=== PATIENT | male | born 1955 | race Caucasian/White ===

== ENCOUNTER 2021-11-27 20:43 | Emergency (ER) | payer OTHER, SELFPAY ==
--- NOTE | ~2021-11-27 | CT_ITS ---
EXAMINATION: CT abdomen pelvis w con DATE: 11/27/2021 23:00 INDICATION: Epigastric pain, nausea and vomiting TECHNIQUE: Computed tomography (CT) of the abdomen and pelvis was performed with 100 mL Omnipaque-300 intravenous contrast. Automated exposure control and iterative reconstruction technique were employe d. The dose-length product was 341.99 mGy-cm. COMPARISON: 05/13/2018 FINDINGS: Again seen is a large sliding-type hiatal hernia with herniation of both the proximal and distal stom ach. There is gas and fluid distention of the intervening gastric body which now extends below the di aphragm. There is compressive atelectasis in the immediately adjacent medial aspect of the bilateral lower lobes, left greater than right. Heart size is normal. No pericardial or pleural effusion. Liver , pancreas, right adrenal gland and right kidney are normal. Postoperative change of prior left nephr ectomy and adrenalectomy. Bladder is normal. Prostatomegaly measuring 4.5 x 3.3 cm. Bowels including the appendix are normal. Bilateral fat-containing inguinal hernias. No free intraperitoneal gas or fl uid. No pathologically enlarged abdominal or pelvic lymphadenopathy. There are bridging osteophytes a t multiple levels in the spine, consistent with diffuse idiopathic skeletal hyperostosis (DISH). No i nterval change in a 1.5 cm lucent lesion at the T10 vertebral body which favors a benign etiology mos t likely hemangioma. IMPRESSION: 1. Large sliding-type hiatal hernia which contains to contain both the proximal distal stomach but wi th large amount of gas and fluid distending the intervening central gastric body which now protrudes back below the diaphragm. 2. Interval left nephrectomy and adrenalectomy presumptively for a prior renal cell carcinoma. Correl ate with surgical history. No lesion suspicious for metastatic disease. 3. Prostatomegaly. 4. Bilateral fat-containing inguinal hernias. Reviewed, dictated and finalized at location B. IMPRESSION: 1. Large sliding-type hiatal hernia which contains to contain both the proximal distal stomach but with large amount of gas and fluid distending the interveni ng central gastric body which now protrudes back below the diaphragm. 2. Interval left nephrectomy and adrenalectomy presumptively for a prior renal cell carcinoma. Correlate with surgical history. No lesion suspicious for metas tatic disease. 3. Prostatomegaly. 4. Bilateral fat-containing inguinal hernias.
[2021-11-27 20:47] VITALS: BP 153/85; PULSE 65; RESP 14; TEMP 36.9; O2SAT 93
[2021-11-27 21:00] LABS: Basophils Percent Auto 0.4 % (0.2-1.2); Eosinophils Absolute Auto 0.3 K/mm3 (0-0.3); Eosinophils Percent Auto 2.9 % (0-4.4); Hemoglobin 17.5 g/dL (14.0-18.0); Immature Granulocyte Absolute 0.06 K/mm3 (0.00-0.031); Immature Granulocyte Percent A 0.7 % (0-0.5); Lymphocytes Absolute Auto 1.92 K/mm3 (0.9-3.2); Lymphocytes Percent Auto 21.5 % (18.3-44.2); Mean Corpuscular HGB Conc 33.7 g/dl (32-36); Mean Corpuscular Hemoglobin 32.9 pg (26-34); Mean Corpuscular Volume 97.7 fl (80-100); Mean Platelet Volume 9.7 fl (7.4-10.4); Monocytes Percent Auto 11.6 % (2.6-8.5); Neutrophils Absolute Auto 5.6 K/mm3 (1.3-6.7); Neutrophils Percent Auto 62.9 % (45.5-73.1); Platelet Count Result 181 k/mm3 (150-375); Red Blood Count 5.32 M/mm3 (4.6-6.20); Red Cell Distribution Width 14.5 % (11.5-14.5); White Blood Count 8.9 K/mm3 (4.5-10.0)
[2021-11-27 21:12] LABS: Alanine Aminotransferase 38 U/L (6-50); Alkaline Phosphatase 89 U/L (38-126); Anion Gap 8 mmol/L (8-16); Aspartate Amino Transferase 33 U/L (17-59); Bilirubin,Total 0.8 mg/dL (0.2-1.3); Blood Urea Nitrogen 18 mg/dL (9-20); Calcium 9.5 mg/dL (8.4-10.2); Carbon Dioxide 29 mmol/L (22-30); Chloride 102 mmol/L (98-107); Estimated Glomerular Filt Rate 55; Glucose 118 mg/dL (65-110); Lipase 579 U/L (23-300); Potassium 4.1 mmol/L (3.4-5.0); Sodium 139 mmol/L (137-145)
--- NOTE | 2021-11-27 21:48 | ECG_ITS ---
Measurements Intervals [place] Rate: 58 P: 17 MO: 153 QRS: -3 QRSD: 92 T: -7 QT: 432 QTc: 426 Interpretive Statements SINUS BRADYCARDIA BORDERLINE T WAVE ABNORMALITY- INFERIOR LEADS BASELINE ARTIFACT- AVF, V2, V4 BORDERLINE ECG Electronically Signed On 11-28-2021 6:36:47 CDT by Andreas Ray D.O.
[2021-11-27 21:57] VITALS: BP 164/95; PULSE 60; RESP 16; O2SAT 98
[2021-11-27] MEDS: MORPHINE SULFATE (*CRX) 4 MG/ML INJ IV PUSH (22:17)
[2021-11-27] MEDS: ONDANSETRON INJ 4 MG/2 ML VIAL IV PUSH (22:18)
[2021-11-27 22:30] LABS: Troponin I < 0.012 ng/mL (0.000-0.034)
[2021-11-28 00:40] VITALS: BP 166/88; PULSE 60; RESP 18; O2SAT 98
[2021-11-28 00:46] LABS: Appearance Urine Clear (Clear); Bilirubin Urine Negative (Negative); Blood Urine Negative (Negative); Color Urine Yellow (Yellow); Glucose Urine UA Negative (Negative); Ketones Urine Trace mg/dL (Negative); Leukocyte Esterase Ur Negative LEU/UL (Negative); Nitrate Urine Negative (Negative); Protein Urine Negative (Negative); Specific Grav Ur 1.015 (1.001-1.035); Urobilinogen Urine 0.2 mg/dL (<2.0); pH Urine 7.5 (5.0-9.0)
[2021-11-28 00:49] LABS: Mucus Urine Rare /lpf; RBC Urine 0-2 /hpf (0-2); WBC Urine 0-3 /hpf
[2021-11-28 01:04] LABS: Add Urine Microscopic? YES
--- NOTE | 2021-11-28 01:05 | ED.GENADULT ---
HPI - General Adult General Chief complaint: Abdominal Pain Stated complaint: abd pain Time Seen by Provider: 11/27/21 21:40 History of Present Illness HPI narrative: Patient is a 66-year-old male who presents ER with epigastric pain. Sudden onset after eating [employer]. Feels like bad heartburn. He is belching and vomiting. No fevers or chills or sweats. No exertional chest discomfort. No history of heart disease. Has found no alleviating factors. Related Data Allergies Allergy/AdvReac Type Severity Reaction Status Date / Time No Known Allergies Allergy Unverified 11/25/18 15:36 Review of Systems Review of Systems: All systems reviewed & are unremarkable except as noted in HPI and below Constitutional: Constitutional: Denies chills, Denies fatigue and Denies fever(s) ENT: Denies nasal congestion and Denies sore throat Cardiovascular: Cardiovascular: Denies chest pain and Denies radiating jaw, neck or arm pain Respiratory: Respiratory: Denies cough and Denies dyspnea Gastrointestinal: Gastrointestinal: Reports abdominal pain, Reports bloating, Reports nausea and Reports vomiting Musculoskeletal: Musculoskeletal: Denies back pain and Denies myalgias PMFSH Past Medical History Medical History (Updated 11/29/21 @ 01:49 by Chacho Ramirez MD) Cancer of kidney Essential (primary) hypertension GERD without esophagitis Hypogonadism in male IBS (irritable bowel syndrome) Surgical History Surgical History (Updated 11/29/21 @ 01:49 by Chacho Ramirez MD) H/O left nephrectomy Family History Family History (Updated 12/15/16 @ 10:20 by DOCTOR UNKNOWN) Mother Patient's mother is , Onset Age: 58 Family history of lung cancer, Onset Age: 59 Father Family history of primary malignant neoplasm of liver, Onset Age: 56 Social History Social History Smoking status: Former smoker Smoking end date: 05/18/75 Alcohol intake: current Exam Narrative: GENERAL: Uncomfortable-appearing, well-nourished, and in no acute distress. HEAD: Normocephalic, atraumatic. ENT: Mucous membranes moist. CHEST: Clear to auscultation. No respiratory distress. HEART: Regular rate and rhythm. Normal peripheral pulses. ABDOMEN: Soft, mild epigastric tenderness, nondistended. EXTREMITIES: Normal range of motion. No edema. SKIN: Warm, dry, no rash. NEURO: Alert and oriented x3. PSYCH: Normal mood and affect. Course Course Emergency Course: Patient feeling improved. Has history of hiatal hernia so this is not new. Will restart PPI as he has been taking Pepcid. Follow-up with PCP. Vital Signs Vital signs: Vital Signs Temperature 98.5 F 11/27/21 20:47 Pulse Rate 65 11/27/21 20:47 Respiratory Rate 14 11/27/21 20:47 Blood Pressure 153/85 H 11/27/21 20:47 Pulse Oximetry 93 11/27/21 20:47 Oxygen Delivery Room Air 11/27/21 20:47 Temperature 98.5 F 11/27/21 20:47 Pulse Rate 66 11/28/21 02:35 Respiratory Rate 18 11/28/21 02:35 Blood Pressure 152/90 H 11/28/21 02:35 Pulse Oximetry 98 11/28/21 02:35 Oxygen Delivery Room Air 11/27/21 21:57 Medical Decision Making Vital Signs Vital Signs: Vital Signs Temperature 98.5 F 11/27/21 20:47 Pulse Rate 65 11/27/21 20:47 Respiratory Rate 14 11/27/21 20:47 Blood Pressure 153/85 H 11/27/21 20:47 Pulse Oximetry 93 11/27/21 20:47 Oxygen Delivery Room Air 11/27/21 20:47 Temperature 98.5 F 11/27/21 20:47 Pulse Rate 66 11/28/21 02:35 Respiratory Rate 18 11/28/21 02:35 Blood Pressure 152/90 H 11/28/21 02:35 Pulse Oximetry 98 11/28/21 02:35 Oxygen Delivery Room Air 11/27/21 21:57 Lab Data Result diagrams: 11/27/21 20:54 11/27/21 20:54 Labs: Lab Results 11/27/21 11/27/21 11/27/21 Range/Units 20:54 20:54 20:54 WBC 8.9 (4.5-10.0) K/mm3 RBC 5.32 (4.6-6.20) M/mm3 Hgb 17.5 (14.0-18.0) g/dL Hct 52.0 (42.0-52.
[2021-11-28 01:41] VITALS: BP 174/91; PULSE 65; RESP 18; O2SAT 100
[2021-11-28] MEDS: PANTOPRAZOLE SODIUM IV 40 MG VIAL IV PUSH (01:42)
[2021-11-28 02:35] VITALS: BP 152/90; PULSE 66; RESP 18; O2SAT 98
== END 2021-11-28 02:37 | disposition home or self-care (01) ==
PROVIDERS: Emergency Provider Emergency Medicine; PCP Student in an Organized Health Care Education/Training Program
DX: K29.70 Gastritis, unspecified, without bleeding (principal); K44.9 Diaphragmatic hernia without obstruction or gangrene; I10 Essential (primary) hypertension; Z87.891 Personal history of nicotine dependence
CPT/HCPCS: 36415; 74177; 80053; 81001; 83690; 84484; 85025; 93005; 96374; 96375; 99284; C9113; J2270; J2405; Q9967

== ENCOUNTER 2022-03-04 11:11 | Day surgery (SDC) | payer OTHER, SELFPAY ==
[2022-02-17 14:05] VITALS: BMI 25.9
[2022-03-04 11:45] VITALS: BP 169/91; PULSE 52; RESP 20; TEMP 36.7; O2SAT 99
[2022-03-04] MEDS: LACTATED RINGERS 1,000 ML 150 ML IV CONT (12:30)
--- NOTE | 2022-03-04 12:49 | P.PNAN_ITS ---
Anes - Initial Pre Proc Eval Procedure: Operation Date: 03/04/22 13:00 Proposed Procedures p Esophagogastroduodenoscopy - Raghavendra Harkins MD Date/Time: 03/04/22 12:49 Surgeon: Raghavendra Harkins MD Pre Op Diagnosis: Gerd Patient Data Age: 66 Gender: M Height: 1.7 m Weight: 73.5 kg Allergies Allergy/AdvReac Type Severity Reaction Status Date / Time No Known Allergies Allergy Verified 03/04/22 11:55 Home Medications Medication Instructions Recorded Confirmed Type pantoprazole 40 mg tablet,delayed 40 mg PO DAILY #90 tabs 12/25/21 03/04/22 Rx release atorvastatin 20 mg tablet 20 mg PO DAILY 02/17/22 03/04/22 History folic acid 1 mg tablet 1 mg PO DAILY 02/17/22 03/04/22 History lisinopril 40 mg tablet 40 mg PO DAILY 02/17/22 03/04/22 History methotrexate sodium 2.5 mg tablet 20 mg PO WEEKLY 02/17/22 03/04/22 History nebivolol 10 mg tablet (Bystolic) 10 mg PO DAILY 02/17/22 03/04/22 History testosterone cypionate 200 mg/mL 200 mg IM MONTHLY 02/17/22 03/04/22 History intramuscular oil Patient hx anesthesia problems: none Family hx anesthesia problems: none Results Review: All pre-operative results and documents have been reviewed as part of the pre- operative evaluation. [facility] Past Medical History Medical History Cancer of kidney Essential (primary) hypertension GERD without esophagitis Hypogonadism in male IBS (irritable bowel syndrome) Surgical History Surgical History H/O left nephrectomy Family History Family History Mother Patient's mother is , Onset Age: 58 Family history of lung cancer, Onset Age: 59 Father Family history of primary malignant neoplasm of liver, Onset Age: 56 Social History Social History Smoking status: Never smoker Smoking end date: 05/18/75 Alcohol intake: current Alcohol use details: social Substance use: never Substance use type: does not use Living arrangements: with family Spiritual care concerns: No Anes - Eval Final PreProcedure Day of Procedure 03/04/22 12:49 Patient weight: normal Heart: regular rate and rhythm Lungs: clear to auscultation Airway: Mallampati scale class II Neurological: alert and oriented Last oral intake: >/= 8 hours Emergent: no Anesthetic plan: proceed Anesthesia type and monitoring: general GIVS and standard monitoring Results Review: All pre-operative results and documents have been reviewed as part of the pre- operative evaluation. Informed Consent: The patient's anesthetic plan and its attendant risks and benefits were discussed with the patient/family/POA. Questions were solicited and answers provided to the satisfaction of the patient/family/POA.
--- NOTE | 2022-03-04 14:04 | PM.HPGS ---
History of Present Illness History of Present Illness Consent: Risks, benefits, and alternatives have been discussed and questions answered. Patient agrees to proceed with procedure. Chief complaint: Gerd Narrative: Daniel Ibrahim is a 66 year old male Presents for EGD. Patient has a longstanding history of GE reflux disease. Recently started on pantoprazole 40mg p.o. daily. He went to the emergency room. Because of severe substernal chest pain. Because of the pain he was advised to take pantoprazole b.i.d. but his prescription has not yet been accomplished long-term. Patient denies any dysphagia. He has had no bleeding. He denies any weight loss. Previous endoscopy 8 or 9 years ago was unremarkable. Patient presents today for EGD because of persistent heartburn poorly responsive to current medication trials. Review of Systems Review of Systems: Review of systems noncontributory. [facility] Past Medical History Medical History Cancer of kidney Essential (primary) hypertension GERD without esophagitis Hypogonadism in male IBS (irritable bowel syndrome) Surgical History Surgical History H/O left nephrectomy Family History Family History Mother Patient's mother is , Onset Age: 58 Family history of lung cancer, Onset Age: 59 Father Family history of primary malignant neoplasm of liver, Onset Age: 56 Social History Social History Smoking status: Never smoker Smoking end date: 05/18/75 Alcohol intake: current Alcohol use details: social Substance use: never Substance use type: does not use Living arrangements: with family Spiritual care concerns: No Meds Home Medications and Allergies Home Medications Medication Instructions Recorded Confirmed Type pantoprazole 40 mg tablet,delayed 40 mg PO DAILY #90 tabs 12/25/21 03/04/22 Rx release atorvastatin 20 mg tablet 20 mg PO DAILY 02/17/22 03/04/22 History folic acid 1 mg tablet 1 mg PO DAILY 02/17/22 03/04/22 History lisinopril 40 mg tablet 40 mg PO DAILY 02/17/22 03/04/22 History methotrexate sodium 2.5 mg tablet 20 mg PO WEEKLY 02/17/22 03/04/22 History nebivolol 10 mg tablet (Bystolic) 10 mg PO DAILY 02/17/22 03/04/22 History testosterone cypionate 200 mg/mL 200 mg IM MONTHLY 02/17/22 03/04/22 History intramuscular oil Allergies Allergy/AdvReac Type Severity Reaction Status Date / Time No Known Allergies Allergy Verified 03/04/22 11:55 Vital Signs Vital Signs - 24 hr 03/04/22 11:45 Temperature 98.1 F Pulse Rate 52 L Respiratory Rate 20 Blood Pressure 169/91 H Pulse Oximetry 99 Oxygen Delivery Room Air Exam Narrative: Physical exam reveals patient be alert. Vital signs stable. HEENT exam is unremarkable. Patient is anicteric. Lungs are clear. Heart without murmur. Abdomen bowel sounds present soft nontender with no organomegaly. Assessment and Plan Assessment and plan (1) GERD without esophagitis: Code(s): K21.9 - Gastro-esophageal reflux disease without esophagitis Status: Acute Assessment and Plan: patient with chronic GE reflux disease. Currently poorly responsive to current medications of pantoprazole 40mg p.o. daily. Plan for EGD to assess more thoroughly. Likely would benefit from increased dose of medications. Patient should continue to avoid spicy foods caffeine. He should elevate head of bed at night. No late snacks. Further recommendations may be given after endoscopy.
[2022-03-04 14:41] VITALS: BP 104/72; PULSE 63; RESP 16; O2SAT 98
[2022-03-04 14:51] VITALS: BP 100/72; PULSE 53; RESP 16; O2SAT 95
[2022-03-04 15:00] VITALS: BP 108/73; PULSE 58; RESP 16; O2SAT 97
--- NOTE | 2022-03-04 15:03 | SUR.PHASEII ---
PT AWAKE AND ALERT. DRINKING SODA. SPOUSE AT SIDE. DENIES PAIN.
--- NOTE | 2022-03-04 15:04 | WPDANESPN ---
Anes - Prog Note Post-Op Date/Time: 03/04/22 15:04 Cardiovascular status: normal Respiratory status: normal Airway patency: baseline Mental status: baseline Post-Op hydration status: normal Vital Signs: Last Vital Signs Temp 36.7 C 03/04/22 11:45 Pulse 58 L 03/04/22 15:00 Resp 16 03/04/22 15:00 BP 108/73 03/04/22 15:00 Pulse Ox 97 03/04/22 15:00 O2 Del Method Room Air 03/04/22 15:00 Pain Score (VAS): 0/10 I/O: Intake & Output 03/03/22 03/04/22 03/04/22 23:59 07:59 15:59 Intake Total 0 Balance 0 Patient Feedback: Patient satisfied with anesthetic care.
== END 2022-03-04 15:15 | disposition home or self-care (01) ==
PROVIDERS: PCP Student in an Organized Health Care Education/Training Program; Visit Provider Internal Medicine Gastroenterology
PROC: 0DJ08ZZ Inspection of Upper Intestinal Tract, Via Natural or Artificial Opening Endoscopic (ICD-10-PCS; CPT 43235; principal; 2022-03-04 13:00)
DX: K21.9 Gastro-esophageal reflux disease without esophagitis (principal)
CPT/HCPCS: 43235

== ENCOUNTER → 2022-07-11 11:48 | Outpatient (CLI) | payer MEDICARE, SELFPAY ==
--- NOTE | ~2022-07-11 | US_ITS ---
Abdominal Sonogram: Real-time sonographic imaging of the abdomen was performed. Clinical History: Epigastric pain Findings: The liver appears normal with no evidence of mass lesion or bile duct dilatation. Main por mary vein demonstrates normal direction of flow. The spleen is normal in size without evidence of foca l lesion. The gallbladder is well distended, and demonstrate nonmobile round presumed polyps, with t he largest measuring up to 1.1 cm. The common bile duct measures 4 mm. The visualized pancreas, aort a, and IVC are unremarkable. The right kidney measures 10.7 cm in length. No right hydronephrosis. T here is mild increased right renal echogenicity. Left kidney not visualized. Impression: Presumed gallbladder wall polyps, largest measuring up to 1.1 cm. Increased right renal echogenicity suggest chronic medical renal disease. Left kidney not seen. There is reported history of left nephrectomy. Reviewed, dictated and finalized at [facility]. 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 Increased right renal echogenicity suggest chronic medical renal disease. Left kidney not seen. There is reported history of left nephrectomy.
== END ==
PROVIDERS: PCP Student in an Organized Health Care Education/Training Program; Visit Provider Internal Medicine Gastroenterology
DX: R10.13 Epigastric pain (principal); R11.2 Nausea with vomiting, unspecified; R10.11 Right upper quadrant pain
CPT/HCPCS: 76700

== ENCOUNTER 2022-07-21 10:04 | Outpatient (CLI) | payer MEDICARE, SELFPAY ==
[2022-07-21 11:02] LABS: Amylase 213 U/L (30-110); Lipase 432 U/L (23-300)
== END 2022-07-21 10:05 | disposition home or self-care (01) ==
LOC: ANHSURGERY 10:08
PROVIDERS: PCP Student in an Organized Health Care Education/Training Program; Visit Provider Surgery
DX: K82.4 Cholesterolosis of gallbladder (principal)
CPT/HCPCS: 36415; 82150; 83690; 86850; 86900; 86901

== ENCOUNTER 2022-07-23 00:52 | Day surgery (SDC) | payer MEDICARE, SELFPAY ==
[2022-07-18 14:26] VITALS: BMI 25.0
--- NOTE | 2022-07-18 14:32 | PC.NURSE ---
Report to the Outpatient Waiting Room, entrance under the green pavilion located off [facility], at time 11:30 on date 07/23/22. Planned Procedure Time: 1:30. Time changes happen often and if your time is changed the preop area will call you the afternoon before. - You and your visitor will be asked to self-screen and do not enter if you have any COVID symptoms. - Only one visitor is requested with a max of two and NO children visitors are allowed at this time. - The patient visitor may be requested to leave or wait in car when not with patient due to distancing restrictions. - A mask is optional within the hospital at this time. Patients may have clear liquids (water, carbonated beverages, clear teas, apple juice) until 3 hours prior to surgery (10:30) with a maximum of 20 ounces. - No food from midnight until time of surgery Take the following medications with a SIP of water the morning of surgery: NEBIVOLOL DO NOT STOP ANY OF YOUR OTHER PRESCRIPTION MEDICATIONS PRIOR TO SURGERY EXCEPT THE FOLLOWING Medications to discontinue per physician : N/A Date to take last dose: N/A Please no make-up, nail syriac, hairspray, perfume, deodorant, or body powder the day of surgery. No jewelry (including any body piercings) or valuables the day of surgery, leave them at home. Please take a shower or bath the night before, or the morning of, surgery with an antibacterial soap (HIBICLENS). Wear comfortable, loose fitting clothing. Children are encouraged to wear pajamas. - Jewelry must be removed prior to entering the operating room. Rings and piercings that are not removed may be cut off. - The hospital will not accept responsibility for valuables. - Please leave all valuables, including medications, at home the day of surgery. If you are going home after surgery, a licensed experienced truck driver must drive you home. - NO public transportation without another adult if you receive anesthesia. - We recommend that an adult stay with you for 24 hours following discharge. - We also recommend that you do not drive, make important decision, drink alcoholic beverages, or take any drugs that were not prescribed by your health care provider for at least 24 hours after your discharge time. Follow any additional instructions given to you from your surgeon. If you or anyone in your household have experienced Covid symptoms in the past week, please notify your surgeon or the nurse liaison at the phone number below for possible testing. Telephone instructions given to REGULO GARCIA and asked if any additional questions and then verbalized understanding. Patient advised to call surgeon office or pre surgery nurse liaison [phone] if any additional questions.
[2022-07-23] VITALS (10 sets, daily range): BP systolic 125–150; BP diastolic 76–97; PULSE 53–71; RESP 12–20; TEMP 36.2–37.2; O2SAT 95–100; BMI 24.3
[2022-07-23] MEDS: KETOROLAC 15 MG/ML VIAL (*BKC) IV PUSH (12:14)
[2022-07-23] MEDS: LACTATED RINGERS 1,000 ML 30 ML IV CONT ×2 (12:15→13:37)
[2022-07-23] MEDS: ACETAMINOPHEN 500 MG TABLET 1000 MG PO (12:15)
--- NOTE | 2022-07-23 12:33 | WPDHPUPDATE1 ---
History and Physical Update Update Date/Time: 07/23/22 12:33 History and Physical has been reviewed, including an updated exam of the patient. There are NO changes in the patient's condition. Risks, benefits, and alternatives have been discussed and questions answered. Patient agrees to proceed with procedure.
--- NOTE | 2022-07-23 12:33 | WPDANESEPPF ---
Anes - Initial Pre Proc Eval Procedure: Operation Date: 07/23/22 13:30 Proposed Procedures p Laparoscopic Cholecystectomy - Jazmyn Snow MD Date/Time: 07/23/22 12:33 Surgeon: Jazmyn Snow MD Pre Op Diagnosis: gall bladder polyps Patient Data Age: 67 Gender: M Height: 1.7 m Weight: 70.5 kg Last Vital Signs Temp 37.2 C 07/23/22 11:45 Pulse 53 L 07/23/22 11:45 Resp 16 07/23/22 11:45 BP 145/88 H 07/23/22 11:45 Pulse Ox 100 07/23/22 11:45 Allergies Allergy/AdvReac Type Severity Reaction Status Date / Time No Known Allergies Allergy Verified 07/18/22 14:25 Home Medications Medication Instructions Recorded Confirmed Type atorvastatin 20 mg tablet 20 mg PO HS 02/17/22 07/23/22 History folic acid 1 mg tablet 1 mg PO DAILY 02/17/22 07/23/22 History lisinopril 40 mg tablet 40 mg PO DAILY 02/17/22 07/23/22 History methotrexate sodium 2.5 mg tablet 20 mg PO WEEKLY 02/17/22 07/23/22 History nebivolol 10 mg tablet (Bystolic) 10 mg PO DAILY 02/17/22 07/23/22 History testosterone cypionate 200 mg/mL 200 mg IM MONTHLY 02/17/22 07/23/22 History intramuscular oil pantoprazole 40 mg tablet,delayed 40 mg PO BID #180 tabs 03/04/22 07/23/22 Rx release ondansetron 4 mg disintegrating 4 mg PO Q8H #30 tabs 07/18/22 07/23/22 Rx tablet tadalafil 20 mg tablet 20 mg PO DAILY PRN Erectile 07/18/22 07/23/22 History Dysfunction Patient hx anesthesia problems: none Family hx anesthesia problems: none Results Review: All pre-operative results and documents have been reviewed as part of the pre-operative evaluation. [facility] Past Medical History Medical History Cancer of kidney Essential (primary) hypertension Gallbladder polyp GERD without esophagitis Hypogonadism in male IBS (irritable bowel syndrome) Surgical History Surgical History H/O left nephrectomy Family History Family History Mother Patient's mother is , Onset Age: 58 Family history of lung cancer, Onset Age: 59 Father Family history of primary malignant neoplasm of liver, Onset Age: 56 Social History Social History Smoking packs per day: 1 Smoking cigarettes per day: 20.0 Years smoked: 3 Smoking pack-years: 3.00 Smoking status: Former smoker Tobacco type: cigarettes Smoking end date: 05/18/75 Alcohol intake: current Alcohol use details: 2/MONTH Substance use: never Substance use type: does not use Living arrangements: with family Spiritual care concerns: No Anes - Eval Final PreProcedure Day of Procedure 07/23/22 12:33 Patient weight: normal Heart: regular rate and rhythm Lungs: decreased breath sounds Airway: Mallampati scale class II Neurological: alert and oriented Last oral intake: >/= 8 hours ASA classification: III Emergent: no Anesthetic plan: proceed Anesthesia type and monitoring: general ETT and standard monitoring Results Review: All pre-operative results and documents have been reviewed as part of the pre-operative evaluation. Informed Consent: The patient's anesthetic plan and its attendant risks and benefits were discussed with the patient/family/POA. Questions were solicited and answers provided to the satisfaction of the patient/family/POA.
[2022-07-23] MEDS: ceFAZolin 2 GM/D5W 50 ML 2 GM/50 ML BAG IVPB (12:49)
[2022-07-23] MEDS: BUPIVACAINE/EPINEPHRINE 0.5% 50 ML VIAL 30 ML INFILTRATE (13:14)
--- NOTE | 2022-07-23 13:32 | P.OP_ITS ---
Procedure Note - Detailed Date of Procedure 07/23/22 Pre-op Diagnosis biliary colic, gallbladder polyps Post-op Diagnosis Same Procedure Performed Laparoscopic cholecystectomy Surgeon Jazmyn Snow MD Anesthesia General Indications 67-year-old male with symptoms consistent with biliary colic. Imaging cons istent with gallbladder polyps Findings moderately distended gallbladder Description of Procedure The patient was taken to the operating room placed in the supine position. After adequate induction of general anesthesia, the patient was prepped and draped in normal sterile fashion. A time-out was then performed to verify the patient's identity as well as the procedure being performed. I then made a 5 mm incision in the infraumbilical region. Through this, a Veress needle was placed into the peritoneal cavity and CO2 gas was then insufflated. After adequate pneumoperitoneum was achieved, the Veress needle was removed and a 5 mm optiview trocar was placed through this incision under direct visualization. I then placed the laparoscope through this trocar site and under direct visualization placed a further 12 mm subxiphoid port as well as 2 additional 5 mm ports in the right upper abdomen. The gallbladder was then identified and was noted to be moderately distended. I was able to place a grasper at the dome of the gallbladder and this was retracted anterior and cephalad up over the liver. A 2nd retractor was then placed at the infundibulum and retracted laterally, this allowed visualization of the triangle of Calot. I then was able to visualize the cystic duct in its entirety from its proximal insertion into the gallbladder, to its distal junction with the common hepatic/common bile duct junction. At this point, I carefully skeletonized the proximal cystic duct with the [place] dissector. I then clipped and transected the proximal cystic duct. Next I visualized the cystic artery. Again the artery was skeletonized, clipped, and transected. I then used the Bovie cautery to take down the peritoneal attachments of the gallbladder off the liver bed. Once the gallbladder specimen was completely detached, an endo-pouch was placed through the 12 mm port site. I then placed the gallbladder specimen into the Endo pouch and removed the endo-pouch from the 12 mm port site. The specimen will now be sent to pathology for further review. I then copiously irrigated the right upper quadrant. Hemostasis was noted in the liver bed, the clips were noted to be in good position on both the cystic duct stump and the cystic artery stump. No other pathology was noted in the right upper quadrant. I then moved the laparoscope to the subxiphoid port. No iatrogenic injury or other pathology was noted in the lower abdomen. I then closed the 12 mm trocar site under direct visualization using the Aguila cone and 0 Vicryl suture. At this point, the abdomen was desufflated and all ports removed. All port sites were then closed with 4.O Monocryl subcuticular sutures. Dermabond was placed on each incision. The patient tolerated the procedure well, was extubated in the operating room postoperative and will be transferred to the recovery room in stable condition Estimated Blood Loss 5 Drains No Packing No Pathology Yes Complications No immediate complications Condition Stable Disposition PACU [facility] Billing Surgery - Charge Forward: Surgery Billing
[2022-07-23] MEDS: fentaNYL CITRATE INJ (*CRX) 100 MCG/2 ML VIAL 25 MCG IV PUSH ×2 (14:09→14:14)
== END 2022-07-23 16:08 | disposition home or self-care (01) ==
PROVIDERS: PCP Student in an Organized Health Care Education/Training Program; Visit Provider Surgery
PROC: 0FT44ZZ Resection of Gallbladder, Percutaneous Endoscopic Approach (ICD-10-PCS; CPT 47562; principal; 2022-07-23 13:30)
DX: D13.5 Benign neoplasm of extrahepatic bile ducts (principal); I10 Essential (primary) hypertension; K21.9 Gastro-esophageal reflux disease without esophagitis; K58.9 Irritable bowel syndrome, unspecified; E29.1 Testicular hypofunction; Z79.890 Hormone replacement therapy; Z85.528 Personal history of other malignant neoplasm of kidney; Z90.5 Acquired absence of kidney; Z87.891 Personal history of nicotine dependence
CPT/HCPCS: 47562; 88304; A9270; J0690; J1100; J1885; J2405; J2704; J2710; J3010; J7030; J7120

== ENCOUNTER → 2022-12-04 08:23 | Outpatient (CLI) | payer MEDICARE, SELFPAY ==
--- NOTE | ~2022-12-04 | MR_ITS ---
MRI of the left knee Clinical history: Pain Technique: Coronal proton density and proton density-weighted images, sagittal proton-density and T2 fat-sat images, and axial proton-density fat-saturated images were acquired. Findings: Anterior and posterior cruciate ligaments are intact. Medial collateral ligament and the la teral collateral ligament complex are intact. Popliteus tendon is intact. There is large radial tear at the posterior root of the medial meniscus. Probable severe intrasubstan ce degenerative signal in the anterior horn of the lateral meniscus rather than tear. There is moderate chondromalacia at the medial and lateral joint lines. There is diffuse moderate to high-grade chondromalacia of the femoral trochlea and along the medial patellar facet. Small tricompa rtmental osteophytes are present. There is susceptibility artifact at the anterior patella, compatibl e with probable prior patellar tendon and quadriceps tendon repair. No tear of the patellar tendon or quadriceps tendon seen currently. Minimal joint effusion present. P robable small ruptured Pryor's cyst present. Impression: Large radial tear at the posterior root of the medial meniscus. Moderate tricompartmental osteoarthritis, worst in the patellofemoral compartment. Probable postsurgical change of the distal quadriceps tendon and/or proximal patellar tendon. Correla te with surgical history. Probable small ruptured Pryor's cyst. Reviewed, dictated and finalized at location M. Impression: Large radial tear at the posterior root of the medial meniscus. Moderate tricompartmental osteoarthritis, worst in the patellofemoral compartme nt. Probable postsurgical change of the distal quadriceps tendon and/or proximal pa tellar tendon. Correlate with surgical history. Probable small ruptured Pryor's cyst.
== END ==
PROVIDERS: PCP Student in an Organized Health Care Education/Training Program; Visit Provider Nurse Practitioner Family
DX: M25.562 Pain in left knee (principal); S89.92XA Unspecified injury of left lower leg, initial encounter; M25.662 Stiffness of left knee, not elsewhere classified; R29.898 Other symptoms and signs involving the musculoskeletal system; Z98.890 Other specified postprocedural states; S83.242A Other tear of medial meniscus, current injury, left knee, initial encounter; M17.12 Unilateral primary osteoarthritis, left knee
CPT/HCPCS: 73721

== ENCOUNTER 2023-01-14 07:37 | Outpatient (CLI) | payer MEDICARE, SELFPAY ==
--- NOTE | ~2023-01-14 | NM_ITS ---
EXAM: NM gastric emptying study DATE: 01/14/2023 15:11 INDICATION: Early satiety TECHNIQUE: A gastric emptying study was performed using the methodology of Smith ZAPATA, et al. J Nucl Med 2007; 48:568-572. The patient was given a meal consisting of 2 scrambled eggs labeled with mCi T c-99m sulfur colloid, 2 slices of toast, two packages of jam, and approximately 120 mL of water. Simu ltaneous anterior and posterior 1-min images of the abdomen were obtained with the patient supine at multiple time points over a total period of 4 hours. The geometric mean of anterior and posterior vie ws was determined, and the percentage retention was calculated for each time point. COMPARISON: None. FINDINGS: Gastric retention of the radiotracer-labeled meal was 65%, 48%, and 9% at the 1-hour, 2-hour, and 4-h our time points, respectively. With this technique, apparent rapid gastric emptying is suggested by < 30% gastric retention at 1 hour. Delayed gastric emptying is defined by gastric retention of >90% at 1 hour, >60% retention at 2 hours, or >10% retention at 4 hours. IMPRESSION: 1. Normal gastric emptying. Reviewed, dictated and finalized at location A. IMPRESSION: 1. Normal gastric emptying.
== END 2023-01-14 07:38 | disposition home or self-care (01) ==
PROVIDERS: PCP Student in an Organized Health Care Education/Training Program; Visit Provider Internal Medicine Gastroenterology
DX: R68.81 Early satiety (principal)
CPT/HCPCS: 78264; A9541

== ENCOUNTER 2024-10-31 08:13 | Outpatient (CLI) | payer MEDICARE, SELFPAY ==
--- OUTSIDE RECORDS SUMMARY | 2024-10-12 07:58 | XMS_ITS | Clinical Summary ---
Author Organization [facility] Address [address] [place] [address] Care Team Providers Care Central Station Operator Name Role Phone Unavailable Primary Care Provider Unavailabl e Source Comments [facility],non-owned Affiliates and Associated Physician Practices is amultiple site organization consisting of ambulatory clinics and hospital sitesin [place], [place] and [place]. This disclosure is being madepursuant to the Care Everywhere program and may not contain all information available regarding this patient. Last updated 18.[facility] Social History Tobacco Use Types Packs/Day Years Used Date Smoking Tobacco: Never Assessed Sex and Gender Information Value Date Recorded Sex Assigned at Not on file Legal Sex Male 10:44 AM CDT Gender Identity Not on file Sexual Orientation Not on file Plan of Treatment Health Maintenance Due Date Last Done Comments COLOGUARD (AGES 45-75) - COL ON CA SCREENING 1955 COLON MONITORING 1955 COLONOSCOPY - COLON CA SCREENING 1955 CT COLONOGRAPHY - COLON CA SCREENING 1955 Colorectal Cancer Screening 1955 FIT - COLON CA SCREENING 1955 FLEX SIG - COLON CA SCREENING 1955 LIPID TESTING 1955 HEPATITIS C SCREENING 03/27/1973 DTAP/TDAP/TD VACCINES (1 - Tdap) 1974 PNEUMOCOCCAL VACCINE 50+ (1 of 1 - PCV) 2005 ZOSTER VACCINE (1 of 2) 2005 COVID-19 VACCINE (1 - 2023-2 5 season) 2024 DEPRESSION SCREENING 05/18/2024 INFLUENZA VACCINE (Season Ended) 2025 Respiratory Syncytial Virus (RSV) Vaccine Pt: or over 60 yrs (1 - 1-dose 75+ series) 2030 HEPATITIS B VACCINE Aged Out No longe r eligible based on patient's age to complete this topic HIB VACCINE Aged Out No longer eligi ble based on patient's age to complete this topic HPV VACCINE Aged Out No longer eligi ble based on patient's age to complete this topic MENINGOCOCCAL (Group B) VACC INE SHARED DECISION-MAKING Aged Out No longer eligibl e based on patient's age to complete this topic MENINGOCOCCAL GROUPS A/C/Y/W VACCINE Aged Out No longer eligible b ased on patient's age to complete [place] [address] [facility] Address: [address] [address] [place] [address] [address] [place] [address] [facility] MANAGED MEDICARE ADV [facility] [place] [address]
--- OUTSIDE RECORDS SUMMARY | 2024-10-12 07:58 | XMS_ITS | Clinical Summary ---
Author Organization [facility] Address [address] [place] [id number] Phone Care Team Providers Care Director Of Graduate Admissions Name Role Phone Marcianomiles Bryce Esquivel DO Primary Care Provider + Allergies No known active allergies Medications methotrexate 2.5 MG tablet TK 8 TS PO ONCE A WEEK 9 Active lisinopril (PRINIVIL,ZEST RIL) 40 MG tablet TK 1 T PO QD 0 Active folic acid (FOLVITE) 1 MG tablet TK 1 T PO QD 9 Active testosterone cypionate (DEPO-TESTOTER ONE) 200 MG/ML injection INJECT 1.5ML IM Q MONTH 9 Active omeprazole (PriLOSEC) [address] capsule Take 20 mg by mouth daily 7 Active atorvastatin (LIPITOR) 20 MG tablet 9 Active Multiple Vitamin (MULTIVITAMIN) capsule Take 1 capsule by mouth Active ferrous sulfate 324 (65 Fe) MG EC tablet Take 65 mg by mouth Active ascorbic acid (VITAMIN C) 500 mg chewable tablet Chew 500 mg daily Ac tive OMEGA-3 FATTY ACIDS PO Take 500 mg by mouth daily Active Calcium Carb-Cholecalc iferol 500-600 MG-UNIT tablet Take 1 tablet by mouth daily Active tadalafil (CIALIS) 20 MG tablet 0 Active tiZANidine (ZANAFLEX) 2 MG tablet 1 Active B-D 3CC LUER-ARLENE SYR 73GI9-6/2 22G X 1-1/2 3 ML misc See administration instructions 1 Active nebivolol (BYSTOLIC) 10 MG tablet 2 Active Active Problems Problem Noted Date Diagnosed Date Stage 3a chronic kidney disease 01/16/2020 Hyperlipidemia 05/24/2019 Obstructive sleep apnea 09/07/2018 Renal mass 06/09/2018 Overview (07/13/2020): Added automatically from request for surgery [id number] Essential (primary) hypertension 10/06/2017 Rheumatoid arthritis of multiple joints 01/28/20 17 Overview (06/20/2019): Initial L knee with pain and swelling s/p arthrocentesis with no crystals per pcp. Pain in neck, shoulders L>R, hands L>R; muscle aches in hamstrings down calves. Serology negative. CRP elevated at 87.40 mg/L although had likely viral infectious process when drawn so difficult to interpret. US left hand/wrist reveals mild/moderate inflammatory changes with power doppler activity involving wrist, 3rd PIP joint. Vectra (04/14/17): 53 Symptoms mainly in bilat wrists, PIP joints and stiffness>pain. Also with stiffness from hamstrings down to calves which I am uncertain if related to RA or other process. Diclofenac initially helped meloxicam started 01/13 On robaxin 750 mg qid prn, tramadol 50-100 mg qid prn, norco 5/325 mg qid prn Last Assessment & Plan: He feels he is doing well overall with minimal complaints. He has no active synovitis or joint tenderness on exam today. Will continue methotrexate 20 mg p.o. weekly and folic acid 1 mg daily. He is s/p nephrectomy, discussed that we will continue monitoring his renal function closely to ensure that methotrexate remains appropriate. Follow-up in 3 months or sooner as needed. Initial L knee with pain and swelling s/p arthrocentesis with no crystals per pcp. Pain in neck, shoulders L>R, hands L>R; muscle aches in hamstrings down calves. Serology negative. CRP elevated at 87.40 mg/L although had likely viral infectious process when drawn so difficult to interpret. US left hand/wrist reveals mild/moderate inflammatory changes with power doppler activity involving wrist, 3rd PIP joint. Vectra (04/14/17): 53 Symptoms mainly in bilat wrists, PIP joints and stiffness>pain. Also with stiffness from hamstrings down to calves which I am uncertain if related to RA or other process. Diclofenac initially helped meloxicam started 01/13 On robaxin 750 mg qid prn, tramadol 50-100 mg qid prn, norco 5/325 mg qid prn Last Assessment & Plan: He feels he is doing well overall with minimal complaints other than his right wrist is still stiff at times although he denies any significant pain. He feels he is doing well enough on the methotrexate. He has no active synovitis or joint tenderness on exam today. Will continue methotrexate 20 mg p.o. weekly and folic acid 1 mg daily. Can continue the diclofenac which he is using only once to twice a week as needed which does help. Will obtain labs as below. Follow-up in 3 months. Overview: Initial L knee with pain and swelling s/p arthrocentesis with no crystals per pcp. Pain in neck, shoulders L>R, hands L>R; muscle aches in hamstrings down calves. Serology negative. CRP elevated at 87.40 mg/L although had likely viral infectious process when drawn so difficult to interpret. US left hand/wrist reveals mild/moderate inflammatory changes with power doppler activity involving wrist, 3rd PIP joint. Vectra (04/14/17): 53 Symptoms mainly in bilat wrists, PIP joints and stiffness>pain. Also with stiffness from hamstrings down to calves which I am uncertain if related to RA or other process. Diclofenac initially helped meloxicam started 01/13 On robaxin 750 mg qid prn, tramadol 50-100 mg qid prn, norco 5/325 mg qid prn Last Assessment & Plan: He feels he is doing well overall with minimal complaints. He has no active synovitis or joint tenderness on exam today. Will continue methotrexate 20 mg p.o. weekly and folic acid 1 mg daily. Recent nephrectomy, discussed that we will be monitoring his renal function closely to ensure that methotrexate is still appropriate. Follow-up in 3 months or sooner as needed. Gastroesophageal reflux disease 07/23/2015 Immunizations Immunization Administration Dates Next Due Influenza (IM) Preservative Free 03/08/2019 Influenza Injectable Mdck Quadrivalent Preservat shanta 02/23/2018 Influenza Split High Dose Preservative Free IM 1 ,01/24/2020 Influenza TIV (IM) 02/23/2018,03/24/2017 Influenza, Unspecified 02/23/2018,03/24/2017 Moderna Sars-cov-2 Vaccination 06/27/2020 Pneumococcal Conjugate 13-Valent 12/03/2020 Tdap 10/10/2014 Family History Medical History Relation Comments Kidney disease Neg Hx Social History Tobacco Use Types Packs/Day Years Used Date Smoking Tobacco: Former Smokeless Tobacco: Never Alcohol Use Standard Drinks/Week Comments Yes 0 (1 standard drink = 0.6 oz pur e alcohol) occasionally Sex and Gender Information Value Date Recorded Sex Assigned at Not on file Legal Sex Male 9:49 AM MST Gender Identity Not on file Sexual Orientation Not on file Last Filed Vital Signs Vital Sign Reading Time Taken Comments Blood Pressure 118/78 07/17/2021 8:49 AM [employer]O [employer]ARE C[employer] MANAGER Pulse 72 07/17/2021 8:49 AM [employer] C[employer] MANAGER Temperature 35.3 C (95.5 F) 07/17/2021 8:49 AM [employer] C[employer] CENTER MANAGER Respiratory Rate - - Oxygen Saturation - - Inhaled Oxygen Concentration - - Weight 76.7 kg (169 lb) 07/17/2021 8:49 AM AUTO CARE CENTER MANAGER Height 170.2 cm (5' 7) 07/17/2021 8:49 AM AUTO C[employer] CENTER MANAGER Body Mass Index 26.47 07/17/2021 8:49 AM AUTO C[employer] CENTER MANAGER Plan of Treatment Health Maintenance Due Date Last Done Comments Pneumococcal PPSV23/PCV13 65 + Years / Low and Medium Risk (2 of 3 - PPSV23) 12/03/2021 12/03/2020 COVID-19 Vaccine (3 - 2023-2 5 season) 2024 07/25/2020, 06/27/2020 Influenza Vaccine (Season Ended) 2025 03/08/2019, 02/23/2018, 02/23/2018, Additional history exists Insurance Care Teams Director Of Graduate Admissions Relationship Specialty Start Date End Date Bryce Sheth DO [address] [place] [id number] PCP - General Family Medicine 05/25/19
--- OUTSIDE RECORDS SUMMARY | 2024-10-31 08:18 | XMS_ITS | Clinical Summary ---
Author Organization [facility] [address] [facility] Address [address] [place] [address] Phone Care Team Providers Care Insurance Agent Name Role Phone Bryce Sheth DO Primary Care Provide r Frankie Murphy MD Unavailable [phone] Allergies No known active allergies Medications BYSTOLIC 5 mg tabletIndicatio ns:hypertension Take 5 mg by mouth daily before breakfast. 7 Active testosterone cypionate (DEPO-TESTOTERO NE) 200 mg/mL injectionIndica tions:Androgen Deficiency Inject 300 mg into the muscle as instructed every 28 (twenty-eight) days. 7 Active tadalafil (CIALIS) 20 mg tablet Take 20 mg by mouth daily as needed. 5 Active lisinopril (PRINIVIL,ZESTR IL) 40 mg tabletIndicatio ns:hypertension Take 40 mg by mouth daily before breakfast. 9 Active multivitamin capsule Take 1 capsule by mouth daily before breakfast. Active omega-3 fatty acids (FISH OIL) 500 mg capsule Take 500 mg by mouth daily before breakfast. Active ascorbic acid (ascorbic acid with abe hips) 500 mg tablet,chewable Take 500 mg by mouth daily before breakfast. Active calcium carbonate-vitam in D3 (CALTRATE 600 + D) 1500 mg (600 mg elemental) -400 units per tablet Take 1 tablet by mouth daily before breakfast. Active ferrous sulfate ER 324 mg (65 mg iron) EC tabletIndicatio ns:Iron Deficiency Anemia Take 65 mg by mouth daily with breakfast. 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 Do favor that recent L knee pain is more likely 2/2 known OA. Would continue use of Tylenol 1 g bid-tid prn. Also recommend consideration for PT and may benefit from ortho evaluation. Left arm pain 05/03/2024 Assessment & Plan (05/03/2024 9:28 AM PRODUCTION SUPERVISOR OFF SHIFT): Reports notable improvement with home PT exercises, he will continue these and monitor. If the pain returns then he will call and will consider formal PT. Vaccine counseling 03/19/2021 Assessment & Plan (03/19/2021 9:04 AM CDT): Received flu vaccine Recommend Covid19 booster - hold methotrexate for 7-14 days after Check with PCP on your pneumonia vaccination status Recommend Shingrix Right elbow pain 01/10/2020 Assessment & Plan (01/10/2020 9:10 AM CDT): R elbow pain which he localizes to the area of the lateral epicondyle with radiation into the forearm with certain movements. Unable to fully reproduce pain on exam. No pain with resisted pronation/supination. Suspect lateral epicondylitis and recommend trial of banding and exercises/stretches. If the pain persists despite these conservative measures then will re-evaluate and may consider a steroid injection. Will plan for his routine follow up in 3 months but sooner as needed for persistent symptoms. Encounter for medication monitoring 07/20/2019 Assessment & Plan (08/29/2024 8:13 AM CDT): Continue routine lab monitoring Assessment & Plan (05/03/2024 8:17 AM PRODUCTION SUPERVISOR OFF SHIFT): Continue routine lab monitoring Assessment & Plan (01/05/2024 8:19 AM CDT): Continue routine lab monitoring Assessment & Plan (09/09/2023 9:06 AM CDT): Continue routine lab monitoring Assessment & Plan (04/06/2023 11:35 AM PRODUCTION SUPERVISOR OFF SHIFT): Continue routine lab monitoring Assessment & Plan (11/24/2022 11:43 AM CDT): Continue routine lab monitoring Assessment & Plan (09/22/2022 10:05 AM CDT): Continue routine lab monitoring Assessment & Plan (07/21/2022 10:44 AM PRODUCTION SUPERVISOR OFF SHIFT): Continue routine lab monitoring Assessment & Plan (03/17/2022 1:46 PM CDT): Continue routine lab monitoring Assessment & Plan (12/16/2021 2:04 PM CDT): Continue routine lab monitoring Assessment & Plan (09/16/2021 2:36 PM CDT): Continue routine lab monitoring Assessment & Plan (06/17/2021 12:40 PM PRODUCTION SUPERVISOR OFF SHIFT): Continue routine lab monitoring Assessment & Plan (03/18/2021 2:04 PM CDT): Continue routine lab monitoring Assessment & Plan (12/03/2020 3:52 PM CDT): Continue routine lab monitoring Assessment & Plan (09/17/2020 3:06 PM CDT): Continue routine lab monitoring Assessment & Plan (06/18/2020 2:00 PM PRODUCTION SUPERVISOR OFF SHIFT): Continue routine lab monitoring Assessment & Plan (04/03/2020 8:27 AM PRODUCTION SUPERVISOR OFF SHIFT): Continue routine lab monitoring Assessment & Plan (01/09/2020 9:51 AM CDT): Continue routine lab monitoring Assessment & Plan (10/24/2019 12:51 PM CDT): Continue routine lab monitoring Assessment & Plan (07/20/2019 3:56 PM PRODUCTION SUPERVISOR OFF SHIFT): Continue routine lab monitoring Low back pain without sciatica 01/04/2019 Assessment & Plan (06/19/2020 11:45 AM PRODUCTION SUPERVISOR OFF SHIFT): Low back pain/stiffnes with forward flexion. No radicular symptoms. Discussed likely mechanical origin of these complaints. Will obtain updated films. Begin trial of tizanidine 2 mg every 6hr prn. For persistent symptoms will consider PT. Assessment & Plan (01/25/2019 2:46 PM CDT): Primary complaint remains lower back pain (R>L) with radiation into R lateral hip over the weekend. Symptoms exacerbated after forward flexion with subsequent pain/difficulty standing in an upright position. Has begun PT and has completed three visits at this time. XR L spine showed very mild degenerative changes. Discussed likely mechanical origin of these complaints. Will continue PT as well as cyclobenzaprine and Tylenol prn. If pain persists despite trial of PT then will consider MRI, discussed that generally insurance requires an adequate trial of PT before they will approve an MRI. Plan for follow up in 1 month. Assessment & Plan (01/20/2019 3:54 PM CDT): Primary complaint today is lower back pain (R>L) without any radicular symptoms. Symptoms exacerbated after forward flexion with subsequent pain/difficulty standing in an upright position. Has begun PT for one visit along with at home exercises with no significant improvement. Likely mechanical/muscular cause. Will continue PT/at-home exercises. Begin flexeril 5-10 mg tid prn. Discussed se including drowsiness and dizziness. Fu 4 weeks. Sooner if needed. Consider L spine MRI if symptoms persist at next visit. Assessment & Plan (01/04/2019 11:25 AM CDT): Complains of low back discomfort/stiffness which he experiences only after a period of forward spinal flexion after brushing his teeth. Otherwise without complaint and no significant exam findings. No recent imaging so will update at this time. Renal mass, left 06/09/2018 Overview (06/09/2018): Added automatically from request for surgery [id number] Biceps tendinitis, right 04/06/2018 Assessment & Plan (07/06/2018 12:04 PM PRODUCTION SUPERVISOR OFF SHIFT): This was his biggest complaint at last visit, resolved without intervention. Monitor for recurrence. Assessment & Plan (04/06/2018 10:42 AM PRODUCTION SUPERVISOR OFF SHIFT): This is his biggest complaint and is based on history and exam findings. I did discuss with him referral to physical therapy verses a corticosteroid injection although he wants to defer at this time. If symptoms progress he may reconsider. Continue diclofenac 75 mg as needed as this does help. Rheumatoid arthritis of [facility] sites with negative rheumatoid factor 01/27/2017 Overview (04/20/2017): Initial L knee with pain and swelling [...] qid prn, norco 5/325 mg qid prn Assessment & Plan (08/29/2024 10:34 AM CDT): Low cdai. Overall RA appears largely stable at present, he does not feel that any change is warranted. Will continue methotrexate 20 mg weekly and folic acid 1 mg daily. He is s/p nephrectomy, will continue monitoring his renal function closely to ensure that methotrexate remains appropriate. Labs as below. Follow-up in 4 months or sooner as needed. Assessment & Plan (05/03/2024 8:16 AM PRODUCTION SUPERVISOR OFF SHIFT): cdai is in remission. Will continue methotrexate 20 mg weekly and folic acid 1 mg daily. He is s/p nephrectomy, will continue monitoring his renal function closely to ensure that methotrexate remains appropriate. Labs as below. Follow-up in 4 months or sooner as needed. Assessment & Plan (01/05/2024 12:34 PM CDT): cdai is in remission. Will continue methotrexate 20 mg weekly and folic acid 1 mg daily. He is s/p nephrectomy, will continue monitoring his renal function closely to ensure that methotrexate remains appropriate. Labs as below. Follow-up in 4 months or sooner as needed. Assessment & Plan (09/09/2023 10:40 AM CDT): cdai is in remission. Will continue methotrexate 20 mg weekly and folic acid 1 mg daily. Will continue to monitor the elbow, he will call if it is persistent/worsening and will likely start by obtaining an xray. He is s/p nephrectomy, will continue monitoring his renal function closely to ensure that methotrexate remains appropriate. Labs as below. Follow-up in 4 months or sooner as needed. Assessment & Plan (04/06/2023 11:35 AM PRODUCTION SUPERVISOR OFF SHIFT): cdai is in remission. Will continue methotrexate 20 mg weekly and folic acid 1 mg daily. For now will monitor elbow pain, he will call if it is persistent/worsening and will likely start by obtaining an xray. He is s/p nephrectomy, will continue monitoring his renal function closely to ensure that methotrexate remains appropriate. Labs as below. Follow-up in 4 months or sooner as needed. Assessment & Plan (11/24/2022 11:43 AM CDT): cdai is in remission. Will continue methotrexate 20 mg weekly and folic acid 1 mg daily. He is s/p nephrectomy, will continue monitoring his renal function closely to ensure that methotrexate remains appropriate. Labs as below. Follow-up in 4 months or sooner as needed. Assessment & Plan (09/23/2022 11:35 AM CDT): High cdai whereas normally his cdai is in remission. This is the first notable flare that he has had since I began seeing him in 2019. At baseline he has felt very stable with current regimen. Due to burden of disease will give patient a triamcinolone injection. Patient made aware of SE of steroids including but not limited to HTN, increased blood glucose, cataracts, glaucoma, AVN, and osteoporosis with oysterman use. Otherwise will continue methotrexate 20 mg weekly and folic acid 1 mg daily. He is s/p nephrectomy, will continue monitoring his renal function closely to ensure that methotrexate remains appropriate. Labs up to date. Follow-up as scheduled in November or sooner as needed should symptoms persist. Assessment & Plan (07/21/2022 10:44 AM PRODUCTION SUPERVISOR OFF SHIFT): cdai in remission. Overall feels well controlled with current regimen. Will continue methotrexate 20 mg weekly and folic acid 1 mg daily. He is s/p nephrectomy, will continue monitoring his renal function closely to ensure that methotrexate remains appropriate. Labs from 07/08 reviewed, stable. Follow-up in 4 months or sooner as needed. Assessment & Plan (03/18/2022 8:46 AM CDT): cdai in remission. Overall feels well controlled with current regimen. Will continue methotrexate 20 mg weekly and folic acid 1 mg daily. He is s/p nephrectomy, will continue monitoring his renal function closely to ensure that methotrexate remains appropriate. Recent labs reviewed. Follow-up in 4 months or sooner as needed. Assessment & Plan (12/17/2021 9:40 AM CDT): cdai in remission. Overall feels well controlled with current regimen. Will continue methotrexate 20 mg weekly and folic acid 1 mg daily. He is s/p nephrectomy, will continue monitoring his renal function closely to ensure that methotrexate remains appropriate. Recent labs reviewed. Follow-up in 3 months or sooner as needed. Assessment & Plan (09/16/2021 2:36 PM CDT): cdai = 4. Overall feels well controlled with current regimen. Will continue methotrexate 20 mg weekly and folic acid 1 mg daily. He is s/p nephrectomy, will continue monitoring his renal function closely to ensure that methotrexate remains appropriate. Labs today as below. Follow-up in 3 months or sooner as needed. Assessment & Plan (06/18/2021 9:15 AM PRODUCTION SUPERVISOR OFF SHIFT): cdai = 4. Overall feels well controlled with current regimen. Will continue methotrexate 20 mg weekly and folic acid 1 mg daily. He is s/p nephrectomy, will continue monitoring his renal function closely to ensure that methotrexate remains appropriate. Labs today as below. Follow-up in 3 months or sooner as needed. Assessment & Plan (03/19/2021 9:03 AM CDT): Low cdai. Overall feels well controlled with current regimen. Will continue methotrexate 20 mg p.o. weekly and folic acid 1 mg daily. He is s/p nephrectomy, discussed that we will continue monitoring his renal function closely to ensure that methotrexate remains appropriate. Labs today as below. Follow-up in 3 months or sooner as needed. Assessment & Plan (12/18/2020 8:48 AM CDT): cdai in remission. Overall feels well controlled with current regimen. Will continue methotrexate 20 mg p.o. weekly and folic acid 1 mg daily. He is s/p nephrectomy, discussed that we will continue monitoring his renal function closely to ensure that methotrexate remains appropriate. Labs today as below. Follow-up in 3 months or sooner as needed. Assessment & Plan (09/18/2020 10:25 AM CDT): Low cdai. Overall feels well controlled with current regimen. Will continue methotrexate 20 mg p.o. weekly and folic acid 1 mg daily. He is s/p nephrectomy, discussed that we will continue monitoring his renal function closely to ensure that methotrexate remains appropriate. Labs today as below. Follow-up in 3 months or sooner as needed. Assessment & Plan (06/19/2020 11:46 AM PRODUCTION SUPERVISOR OFF SHIFT): Reports one week of L 2nd MCP pain without any other small joint complaints. At baseline feels well controlled with current regimen and does not feel that current symptoms warrant anything further at present, would like to monitor. Will continue methotrexate 20 mg p.o. weekly and folic acid 1 mg daily. He is s/p nephrectomy, discussed that we will continue monitoring his renal function closely to ensure that methotrexate remains appropriate. Labs today as below. Monitor hand pain and call/follow up if worsening, otherwise follow-up in 3 months or sooner as needed. Assessment & Plan (04/03/2020 12:12 PM PRODUCTION SUPERVISOR OFF SHIFT): Reports one week of L 2nd finger pain, improved again today, non-tender on exam with full fist and ship engineer intact. At baseline feels well controlled with current regimen. Will continue methotrexate 20 mg p.o. weekly and folic acid 1 mg daily. He is s/p nephrectomy, discussed that we will continue monitoring his renal function closely to ensure that methotrexate remains appropriate. Labs today as below. Monitor hand pain and call/follow up if worsening. Follow-up in 3 months or sooner as needed. Assessment & Plan (01/10/2020 9:11 AM CDT): He feels he is doing well overall outside of his R elbow. He has no active synovitis or joint tenderness on exam today. Will continue methotrexate 20 mg p.o. weekly and folic acid 1 mg daily. He is s/p nephrectomy, discussed that we will continue monitoring his renal function closely to ensure that methotrexate remains appropriate - he had a CBC and RFP last month, will check LFTs today. Follow-up in 3 months or sooner as needed. Assessment & Plan (10/24/2019 12:51 PM CDT): He feels he is doing well overall with minimal complaints. He has no active synovitis or joint tenderness on exam today. Will continue methotrexate 20 mg p.o. weekly and folic acid 1 mg daily. He is s/p nephrectomy, discussed that we will continue monitoring his renal function closely to ensure that methotrexate remains appropriate. Follow-up in 3 months or sooner as needed. Assessment & Plan (07/26/2019 9:35 AM CDT): He feels he is doing well overall with minimal complaints. He has no active synovitis or joint tenderness on exam today. Will continue methotrexate 20 mg p.o. weekly and folic acid 1 mg daily. He is s/p nephrectomy, discussed that we will continue monitoring his renal function closely to ensure that methotrexate remains appropriate. Follow-up in 3 months or sooner as needed. Assessment & Plan (04/26/2019 10:50 AM PRODUCTION SUPERVISOR OFF SHIFT): He feels he is doing well overall with minimal complaints. He has no active synovitis or joint tenderness on exam today. Will continue methotrexate 20 mg p.o. weekly and folic acid 1 mg daily. He is s/p nephrectomy, discussed that we will continue monitoring his renal function closely to ensure that methotrexate remains appropriate. Follow-up in 3 months or sooner as needed. Assessment & Plan (01/25/2019 2:43 PM CDT): He feels he is doing well overall with minimal complaints. He has no active synovitis or joint tenderness on exam today. Will continue methotrexate 20 mg p.o. weekly and folic acid 1 mg daily. Recent nephrectomy, discussed that we will be monitoring his renal function closely to ensure that methotrexate is still appropriate. Follow-up in 3 months or sooner as needed. Assessment & Plan (01/20/2019 3:56 PM CDT): CDAI 0. Overall, does continue to feel that he is doing very well in regards to his peripheral joint complaints. Denies any peripheral joint pain or stiffness at present. No obvious peripheral joint synovitis. Will continue methotrexate 20 mg p.o. Weekly, FA 1 mg q.d.. Recent labs reviewed with patient. Follow-up 4 weeks. Sooner if needed. Assessment & Plan (12/30/2018 9:20 AM CDT): He feels he is doing well overall with minimal complaints. R wrist pain which correlates with golfing likely mechanical in origin. He feels he is doing well enough on methotrexate monotherapy. He has no active synovitis or joint tenderness on exam today. Will continue methotrexate 20 mg p.o. weekly and folic acid 1 mg daily. Recent nephrectomy, discussed that we will be monitoring his renal function closely to ensure that methotrexate is still appropriate. He is having labs drawn with urology next week and requests to bring lab orders with him to that visit so that duplicates are not drawn, orders given. Follow-up in 3 months or sooner as needed. Assessment & Plan (10/05/2018 12:23 PM CDT): He feels he is doing well overall with minimal complaints. R wrist pain which correlates with golfing likely mechanical in origin. He feels he is doing well enough on methotrexate monotherapy. He has no active synovitis or joint tenderness on exam today. Will continue methotrexate 20 mg p.o. weekly and folic acid 1 mg daily. Recent nephrectomy, discussed that we will be monitoring his renal function closely to ensure that methotrexate is still appropriate. He is having labs drawn with urology next week and requests to bring lab orders with him to that visit so that duplicates are not drawn, orders given. Follow-up in 3 months or sooner as needed. Assessment & Plan (07/06/2018 12:08 PM PRODUCTION SUPERVISOR OFF SHIFT): He feels he is doing well overall with minimal complaints. He feels he is doing well enough on methotrexate monotherapy. He has no active synovitis or joint tenderness on exam today. Will continue methotrexate 20 mg p.o. weekly and folic acid 1 mg daily. Can continue the diclofenac which he is using only once to twice a week as needed which does help. CBC and CMP from 06/29/18 reviewed. Follow-up in 3 months. Pt is undergoing nephrectomy for RCC on 07/19/18, will hold methotrexate now until the procedure and for 2 weeks afterward. Going forward will need to monitor renal function closely to ensure that it is appropriate to continue methotrexate. Assessment & Plan (04/06/2018 10:39 AM PRODUCTION SUPERVISOR OFF SHIFT): He feels he is doing well overall [...] labs as below. Follow-up in 3 months. Assessment & Plan (01/05/2018 12:42 PM CDT): He is doing well overall. His right wrist is bothersome at times and worse with over doing it. Does have some mild swelling and tenderness with decreased flexion and extension of the right wrist on exam which he attributes to a tearing down a deck this last weekend. I did discuss with him additional treatment with DMARDs although he feels he is doing well enough with the methotrexate alone. He does want to stop the diclofenac to limit his medications. Continue methotrexate 20 mg p.o. weekly and folic acid 1 mg daily. Will discontinue the diclofenac although if symptoms progress off this he can resume this as needed. Obtain labs as below. Follow-up in 3 months. Assessment & Plan (10/13/2017 11:09 AM CDT): He appears to be doing well overall. He has had some increased pain over the right wrist for over 1 month now which he aggravated playing golf. Saw orthopedic surgery who did an x-ray and evaluated him although no specific diagnosis was made. Pain is worse with activity particularly with golfing. He does have some mild tenderness over the ulnar styloid although no other significant findings. I do not suspect his right wrist pain is from his rheumatoid arthritis although this remains possible. I discussed with him obtaining an ultrasound of the right hand and wrist for further evaluation his pain although he wants to defer this at this time. Other than the right wrist he has essentially no other complaints. Will continue methotrexate 20 mg p.o. weekly and folic acid 1 mg daily. Continue diclofenac 75 mg daily to b.i.d. as needed although he typically only taking this daily. Patient had labs drawn last week by his primary care physician and will request these labs. Follow-up in 3 months. Assessment & Plan (07/14/2017 10:36 AM PRODUCTION SUPERVISOR OFF SHIFT): Doing very well with essentially no complaints other than occasional stiffness in wrists. Has no synvoitis on exam and no tenderness. Cont MTX 20 mg PO weekly, folic acid 1 mg daily. Pt taking diclofenac 75 mg 3 times weekly although he is going to see how he does off it. Labs as below. F/u 3 months. Assessment & Plan (04/14/2017 9:24 AM PRODUCTION SUPERVISOR OFF SHIFT): Continues to improve with the MTX. Still with some pain and stiffness in hands, wrists, hips/hamstrings although much improved. Swelling significantly improved as well. Currently on MTX 17.5 mg weekly. Has minimal complaints today. Will increase MTX to 20 mg PO weekly, cont folic acid 1 mg daily. Can cut back on diclofenac 75 mg from bid to prn. Lans as below including Vectra DA . Recent CBC per hem/onc wnl (04/01/17). F/u 3 months Assessment & Plan (03/03/2017 10:04 AM CDT): CDAI 19: Moderate disease activity Is doing better with the initiation of MTX. Still with pain and stiffness in hands, wrists. Stiffness in glutes and hamstrings with bending is biggest complaint although I am uncertain if this is secondary to his RA vs a mechanical issue. Has some fatigue with the MTX although this is improving. Has synovitis over several mcp joints and wrists on exam. Will increase MTX to 20 mg PO weekly, cont folic acid 1 mg daily. Labs as below. F/u 6 weeks. Assessment & Plan (01/27/2017 12:42 PM CDT): CDAI 22: Moderate disease activity Serology negative. CRP elevated at 87.40 mg/L although had likely viral infectious process when drawn so difficult to interpret. US left hand/wrist reveals mild/moderate inflammatory changes with power doppler activity involving wrist, 3rd PIP joint. Symptoms mainly in bilat wrists, PIP joints and stiffness>pain. Also with stiffness from hamstrings down to calves which I am uncertain if related to RA or other process. Will start MTX 12.5 mg PO weekly, folic acid 1 mg daily. F/u 4 weeks and likely increase dose. Rotator cuff tendonitis 01/27/2017 Overview (04/06/2018): MRI left shoulder reveals severe rotator cuff tendinopathy with partial thickness tears of supraspinatus, infraspinatus, and subscapularis tendons with moderate AC Oa, moderate subacromial/subdeltoid bursitis, and small glenohumeral joint effusion. L shoulder injected with kenalog (01/27/17) Referred to PT (01/27/17) Assessment & Plan (03/03/2017 10:09 AM CDT): MRI reveals severe rotator cuff tendinopathy with partial thickness tears of supraspinatus, infraspinatus, and subscapularis tendons with moderate AC Oa, moderate subacromial/subdeltoid bursitis, and small glenohumeral joint effusion. Symptoms much improved s/p corticosteroid injection although this is starting to wear off. Has done 4 weeks of PT and has home therapy to do now. Cont home PT regimen. If symptoms progress pt to follow up with his ortho, Dr. Ez Umaña. Assessment & Plan (01/27/2017 12:46 PM CDT): Has ongoing left shoulder pain with decreased ROM. MRI reveals severe rotator cuff tendinopathy with partial thickness tears of supraspinatus, infraspinatus, and subscapularis tendons with moderate AC Oa, moderate subacromial/subdeltoid bursitis, and small glenohumeral joint effusion. L shoulder injected with kenalog 40 mg. Will refer to PT . If no benefit with this will refer to ortho. Cont meloxicam 15 mg daily. Leukocytosis, unspecified 01/27/2017 Assessment & Plan (01/27/2017 12:52 PM CDT): Wbc 20.42 although pt reported severe chills/?fever night before labs. Likely with transient viral infection. Repeat wbc 12. Per pt he was referred to hem/onc per Dr. Guzman. Resolved Problems Problem Noted Date Diagnosed Date Resolved Date Polyarthralgia 01/13/2017 01/27/2017 Overview (01/13/2017): Migratory pain over 6 weeks from initial visit: initial L knee with pain and swelling, neck, shoulders L>R, hands L>R; muscle aches in hamstrings down calves. JORDYN, Rf, anti-ccp ab neg Diclofenac initially helped meloxicam started 01/13 On robaxin 750 mg qid prn, tramadol 50-100 mg qid prn, norco 5/325 mg qid prn jackson isabel md pcp Assessment & Plan (01/13/2017 10:29 AM CDT): Has had increased migratory pain for the last 6 weeks. Initially started in L knee with pain and swelling. Per pt MRI revealed degenerative changes and torn meniscus. Saw ortho who did corticosteroid injection and recommended rest which did essentially resolve the pain, swelling. When shoudler pain resolved, neck pain began to occur and was severe followed by L >R shoulder pain . Pain in shoulder is biggest complaint and has problems lifting arm at times and difficulty using L arm at times. Has stiffness in hands L>R and unable to make full fist over last 6 weeks. Has fullness of L 3rd PIP joint although no other synovitis. Possible etiologies include RA vs SpA vs mechanical pain. Is noted pt with no rash, psoriasis, GI complaints, low back/SI joint complaints. Recent labs reveal Rf, anti-ccp ab neg, JORDYN neg. On diclofenac 75 mg bid which helped knee but not shoulder. Also on tramadol 50-100 mg qid prn, robaxin 750 mg qid prn, norco 5/325 mg q4 hrs prn. Will obtain labs as below. Will obtain xray bilat shoulders, c-spine. If xray L shoulder unremarkable will likely proceed with MRI. Obtain US L hand to evaluate for inflammatory changes. Will DC diclofenac and start meloxicam 15 mg daily to see if can offer more benefit. F/u 2 weeks Encounters Date Type Department Care Team Description 10/19/2024 Orders Only [facility] ([facility]) - [facility]rology [address] [facility] [address] [place] [address] [place] [address] Ezra Sims NP Renal mass (Primary Dx) 10/19/2024 Telephone [facility] [address] [place] [address] China Curran 08/31/2024 Results Follow-Up [facility] [address] [place] [phone] Fior Elizondo PA CBC with auto differential, Comprehensive metabolic panel 08/29/2024 9:00 AM CDT Office Visit [facility] [address] [place] [phone] Fior Elizondo PA Rheumatoid arthritis of multiple sites with negative rheumatoid factor (HCC) (Primary Dx); Encounter for medication monitoring; Acute pain of left knee from Last 3 Months Surgical History Surgery Date Site/Laterality Comments KNEE SURGERY FOOT SURGERY Medical History Medical History Date Comments Hypertension Acid reflux Rheumatoid arthritis (HCC) Renal mass Family History Medical History Relation Name Comments Liver cancer Father Lung cancer Mother Relation Name Status Comments Father Mother Social History Tobacco Use Types Packs/Day Years Used Date Smoking Tobacco: Former Cigarettes 1 3 1 973 - 1975 Smokeless Tobacco: Never Alcohol Use Standard Drinks/Week Comments No 0 (1 standard drink = 0.6 oz pur e alcohol) Sex and Gender Information Value Date Recorded Sex Assigned at Not on file Legal Sex Male 1:08 PM CDT Gender Identity Not on file Sexual Orientation Not on file Obstetrics History Last Filed Vital Signs Vital Sign Reading Time Taken Comments Blood Pressure 144/88 08/29/2024 8:59 AM CDT Pulse 46 08/29/2024 8:59 AM CDT Temperature 36.6 C (97.9 F) 06/18/2021 8:44 AM PRODUCTION SUPERVISOR OFF SHIFT Respiratory Rate 16 07/20/2018 11:15 AM PRODUCTION SUPERVISOR OFF SHIFT Oxygen Saturation 95% 08/29/2024 8:59 AM CDT Inhaled Oxygen Concentration - - Weight 71.9 kg (158 lb 9.6 oz) 08/29/2024 8:59 A M CDT Height 170.2 cm (5' 7) 08/29/2024 8:59 AM CDT Body Mass Index 24.84 08/29/2024 8:59 AM CDT Plan of Treatment Health Maintenance Due Date Last Done Comments Colon Cancer Screening-Colonoscopy 1955 Depression Screening 1955 Fall Risk Assessment 1955 Prostate Cancer Screening-PSA 1955 Hepatitis B Screening 1973 Abdominal Aortic Aneurysm (A AA) Screen 2020 10/13/2018 Well Visit 65+ 2020 Covid-19 Vaccine (3 - Modern a risk series) 05/08/2021 04/10/2021, 07/25/2020, 06/27/2020 DTaP/Tdap/Td Vaccine (2 - Td or Tdap) 10/10/2024 10/10/2014 Influenza Vaccine (Season Ended) 2025 03/02/2023, 02/25/2021, 01/24/2020, Additional history exists Hepatitis C Screening Completed 01/13/2017 Pneumococcal vaccine 65+ Completed 12/09/2021, 11/15 Zoster Vaccine Completed 08/06/2022, 05/05/2022 Procedures Procedure Name Priority Date/Time Associated Diagnosis Comments COMPREHENSIVE METABOLIC PANEL Routine 08/30/2024 7:06 AM CDT Encounter for medication monitoring CBC WITH AUTO DIFFERENTIAL Routine 08/30/2024 7:06 AM CDT Encounter for medication monitoring CT ABDOMEN W WO CONTRAST Schedule Routine, Read Routine (OP Routine) 10/13/2018 11:51 AM CDT Renal mass HEPATITIS C RNA, QUANTITATIVE, PCR Routine 01/13/2017 10:30 AM CDT from Last 3 Months or Most Recently Relevant to Health Maintenance Results * (ABNORMAL) CBC with auto differential (08/30/2024 7:06 AM CDT) WBC 8.0 3.4 - 10.8 x10E3/uL [facility] - 01 RBC 5.37 4.14 - 5.80 x10E6/uL [facility] - 01 Hgb 17.6 13.0 - 17.7 g/dL [facility] - 01 Hct 52.7(H) 37.5 - 51.0 % [facility] - 01 MCV 98(H) 79 - 97 fL [facility] - 01 MCH 32.8 26.6 - 33.0 pg [facility] - 01 MCHC 33.4 31.5 - 35.7 g/dL [facility] - 01 Rdw 13.5 11.6 - 15.4 % [facility] - 01 Platelets 159 150 - 450 x10E3/uL [facility] - 01 Neutrophils pct 65 Not Estab. % [facility] - 01 Lymphs pct 17 Not Estab. % [facility] - 01 Monocytes pct 12 Not Estab. % [facility] - 01 Eosinophils pct 4 Not Estab. % [facility] - 01 Basophil pct 1 Not Estab. % [facility] - 01 Neutrophil abs 5.2 1.4 - 7.0 x10E3/uL [facility] - 01 Lymphs (Absolute) 1.4 0.7 - 3.1 x10E3/uL [facility] - 01 Monocyte abs 0.9 0.1 - 0.9 x10E3/uL [facility] - 01 Eosinophils, abs 0.3 0.0 - 0.4 x10E3/uL [facility] - 01 Basophils, abs 0.0 0.0 - 0.2 x10E3/uL [facility] - 01 Immature Granulocytes 1 Not Estab. % [facility] - 01 Immature Grans (Abs) 0.1 0.0 - 0.1 x10E3/uL [facility] - 01 Blood 08/30/2024 7:06 AM CDT 08/30/2024 Narrative [facility] - 08/30/2024 11:07 PM CDT Performed at: [address] [place] [id number] Track Patrol: Clemente Kulkarni PhD, Phone: [phone] us Fior MARKS LAB BLOOD ORDERABLES [place] Result [facility] * (ABNORMAL) Comprehensive metabolic panel (08/30/2024 7:06 AM CDT) [facility] Glucose 105(H) 70 - 99 mg/dL [facility] - 01 BUN 14 8 - 27 mg/dL [facility] - 01 Creatinine, Serum 1.36(H) 0.76 - 1.27 mg/dL [facility] - 01 eGFR 56(L) >59 mL/min/1.7 3 [facility] - 01 BUN/creat ratio 10 10 - 24 [facility] - 01 Sodium 142 134 - 144 mmol/L [facility] - 01 Potassium, sr 4.1 3.5 - 5.2 mmol/L [facility] - 01 Chloride 102 96 - 106 mmol/L [facility] - 01 CO2 22 20 - 29 mmol/L [facility] - 01 Calcium 9.2 8.6 - 10.2 mg/dL [facility] - 01 Protein, sr 6.8 6.0 - 8.5 g/dL [facility] - 01 Albumin 4.3 3.9 - 4.9 g/dL [facility] - 01 Globulin, Total 2.5 1.5 - 4.5 g/dL [facility] - 01 Bilirubin, Total 0.7 0.0 - 1.2 mg/dL [facility] - 01 Alk phos 100 44 - 121 IU/L [facility] - 01 AST 29 0 - 40 IU/L [facility] - 01 ALT 27 0 - 44 IU/L [facility] - 01 Blood 08/30/2024 7:06 AM CDT 08/30/2024 Narrative [facility] - 08/31/2024 4:07 AM CDT Performed at: [address] [id number] Track Patrol: Clemente Kulkarni PhD, Phone: [phone] us Fior MARKS LAB BLOOD ORDERABLES [place] [facility] Result [facility] - 01 * CT abdomen with and without contrast (10/13/2018 11:51 AM CDT) Anatomical Region Laterality Modality Body N/A Computed Tomogra phy 10/13/2018 12:1 1 PM CDT Impressions 10/13/2018 12:11 PM CDT 1. Interval left nephrectomy and adrenalectomy without evidence of recurrent or metastatic disease. 2. 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 COMPARISON: Computed tomography examination of the abdomen and pelvis from [facility] 05/13/2018 FINDINGS: There has been interval left nephrectomy and adrenalectomy. The postoperative beds appear normal. The liver, gallbladder, spleen, pancreas, right adrenal gland, and right kidney appear normal. Bowel gas pattern is normal. There is no abdominal lymphadenopathy. Images obtained through the lung bases demonstrate a large hernia. The lungs are clear. Images obtained with bone window settings demonstrate no suspicious osseous abnormality. A probable hemangioma present within T10. 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 COMPARISON: Computed tomography examination of the abdomen and pelvis from [facility] 05/13/2018 FINDINGS: There has been interval left nephrectomy and adrenalectomy. The postoperative beds appear normal. The liver, gallbladder, spleen, pancreas, right adrenal gland, and right kidney appear normal. Bowel gas pattern is normal. There is no abdominal lymphadenopathy. Images obtained through the lung bases demonstrate a large hernia. The lungs are clear. Images obtained with bone window settings demonstrate no suspicious osseous abnormality. A probable hemangioma present within T10. IMPRESSION: 1. Interval left nephrectomy and adrenalectomy without evidence of recurrent or metastatic disease. 2. Large hiatal hernia Electronically signed by: Walker Razo M.D. Michael Wu MD IMG CT PROCEDURES Final R esult * Hepatitis C RNA, quantitative, PCR (01/13/2017 10:30 AM CDT) HCV RNA qn Undetected Undetected IUnits/mL [facility] Comment: Result in log IU/mL is Undetected. ADDITIONAL INFORMATION The quantification range of this assay is 15 to 100,000,000 IU/mL (1.18 log to 8.00 log IU/mL). Testing was performed by the [employer] AmpliPrep/MARGARITA TaqMan HCV Test, version 2.0 ([employer] Test Performed by: [facility] - [address] [address] Blood specimen (specimen) 01/13/2017 10:30 AM CDT 01/13/2017 3:27 PM CDT Frankie Murphy MD LAB MICROBIOLOGY - GENER AL ORDERABLES Final Result [facility] [address] Department [place] [address] from Last 3 Months or Most Recently Relevant to Health Maintenance [place] [address] [facility] [place] [address] [facility] [place] [address] [facility] [place] [address] [facility] MEDICARE ADVANTAGE Advance Directives For more information, please contact: [phone] * Full Code (Latest Code Status on File) Date Activated Date Inactivated Comments 07/19/2018 11:09 AM 07/20/2018 9:35 PM Care Teams Insurance Agent Relationship Specialty Start Date End Date Bryce Sheth DO PCP - General 10/13/18 Frankie Murphy MD [address] [facility] [address] [place] [address] Consulting Physician Rheumatology 12/23/18
--- OUTSIDE RECORDS SUMMARY | 2024-10-31 08:18 | XMS_ITS | Clinical Summary ---
Author Organization [facility] [email or web address] Address [address] [place] [address] Care Team Providers Care Preschool Teacher Assistant Name Role Phone Unavailable Primary Care Provider Unavailabl e Source Comments [facility],non-owned Affiliates and Associated Physician Practices is amultiple site organization consisting of ambulatory clinics and hospital sitesin [place], [place], [place] and [place]. This disclosure is being madepursuant to the Care Everywhere program and may not contain all information available regarding this patient. Last updated 18.[facility] [email or web address] Social History Tobacco Use Types Packs/Day Years [...] patient's age to [place] [address] [facility] Address: [address] [address] [place] [address] [facility] [address] [facility] MANAGED MEDICARE ADV [facility]
--- OUTSIDE RECORDS SUMMARY | 2024-10-31 08:18 | XMS_ITS | Clinical Summary ---
Author Organization [facility] Address [address] [place] [address] Care Team Providers Care Ticket Taker [employer] Name Role Phone Shankar Piedra Primary Care Provider + Allergies No known active allergies Medications folic acid 1 MG tablet Take 1 tablet (1 mg total) by mouth daily. Active Multiple Vitamin (MULTIVITAMIN) capsule Take 1 capsule by mouth. Active ferrous sulfate, 65 mg elemental, 324 (65 Fe) MG tablet Take 65 mg by mouth. Active Calcium Carb-Cholecalcifer ol (CALCIUM CARBONATE-VITAMIN D3 OR) Take 1 tablet by mouth daily. 1500 mg- 400 units Active Ascorbic Acid 500 MG Chew Tab Chew 1 tablet (500 mg total) by mouth daily. With Nolvia hips Active methotrexate 2.5 MG tablet TK 8 TS PO Q WEEK 10/25/19 20 Active fish oil 1000 MG Cap capsule Take 1 capsule (1,000 mg total) by mouth daily. Active dicyclomine (BENTYL) 20 MG tabletIndications: Abdominal spasms Take 1 tablet (20 mg total) by mouth every 6 (six) hours as needed. 120 tablet 2 10/15/19 23 Active tadalafil (CIALIS) 20 MG tabletIndications: Erectile dysfunction, unspecified erectile dysfunction type TAKE 1 TABLET(20 MG) BY MOUTH DAILY NEEDED FOR ERECTILE DYSFUNCTION 24 tablet 05/04/20 24 Active SYRINGE-NEEDLE, DISP, 3 ML (B-D 3CC LUER-ARLENE SYR 25IR5-5/2) 22G X 1-1/2 3 ML MiscIndications:Hy pogonadism in male USE DIRECTED 100 each 3 05/05/20 24 Active nebivolol (BYSTOLIC) 10 MG tabletIndications: Benign hypertension with CKD (chronic kidney disease) stage III (CMS/HCC) TAKE 1 TABLET BY MOUTH DAILY 90 tablet 1 08/02/19 25 Active lisinopril (PRINIVIL) 40 MG tabletIndications: Hypertension, unspecified type TAKE 1 TABLET(40 MG) BY MOUTH DAILY 90 tablet 1 08/16/19 25 Active atorvastatin (LIPITOR) 20 MG tabletIndications: Mixed hyperlipidemia TAKE 1 TABLET(20 MG) BY MOUTH EVERY NIGHT AT BEDTIME 90 tablet 08/25/19 25 Active testosterone cypionate (DEPO TESTOSTERONE) 200 MG/ML injectionIndicatio ns:Hypogonadism in male ADMINISTER 1.0 ML IN THE MUSCLE 1 TIME MONTHLY 6 mL 10/04/19 25 Active pantoprazole EC (PROTONIX) 40 MG tabletIndications: Gastroesophageal reflux disease, unspecified whether esophagitis present Take 1 tablet (40 mg total) by mouth 2 (two) times a day. 60 tablet 1 10/18/19 25 Active ondansetron (ZOFRAN-ODT) 4 MG disintegrating tabletIndications: Nausea and vomiting, unspecified vomiting type Take 1 tablet (4 mg total) by mouth every 8 (eight) hours as needed for Nausea. 20 tablet 10/18/19 25 Active testosterone cypionate (DEPO TESTOSTERONE) 200 MG/ML injectionIndicatio ns:Hypogonadism in male ADMINISTER 1.5 ML IN THE MUSCLE 1 TIME MONTHLY 6 mL 09/14/19 25 025 Discontin ued(Reord er) pantoprazole EC (PROTONIX) 40 MG tabletIndications: Gastroesophageal reflux disease, unspecified whether esophagitis present TAKE 1 TABLET(40 MG) BY MOUTH DAILY 90 tablet 09/24/19 25 025 Discontin ued(Dose adjustmen t) Active Problems Problem Noted Date Diagnosed Date Injury of knee, ligament, left, initial encounte r 12/02/2022 Decreased ROM of left knee 12/02/2022 Hx of left knee surgery 12/02/2022 Popping sound of knee joint 12/02/2022 Hernia, hiatal 05/05/2022 Vaccine counseling 03/19/2021 Overview (08/14/2021): Last Assessment & Plan: Received flu vaccine Recommend Covid19 booster - hold methotrexate for 7-14 days after Check with PCP on your pneumonia vaccination status Recommend Shingrix Chronic kidney disease, stage III (moderate) Stage 3a chronic kidney disease 01/16/2020 Right elbow pain 01/10/2020 Overview (02/16/2020): Last Assessment & Plan: R elbow pain which he localizes to [...] but sooner as needed for persistent symptoms. Right elbow pain 01/10/2020 Overview (08/14/2020): Last Assessment & Plan: R elbow pain which he localizes to [...] persistent symptoms. Encounter for medication monitoring 07/20/2019 Overview (08/14/2020): Last Assessment & Plan: Continue routine lab monitoring BMI 26.0-26.9,adult 05/24/2019 Status post nephrectomy 05/24/2019 Hyperlipidemia, unspecified hyperlipidemia type 05/24/2019 Low back pain without sciatica 01/04/2019 Overview (05/24/2019): Overview: X-ray 01/11/2019: L-spine: Grade 1 anterolisthesis at L4-L5 and mild degenerative changes Last Assessment & Plan: Primary complaint remains lower back pain (R>L) [...] Plan for follow up in 1 month. Low back pain without sciatica 01/04/2019 Overview (08/14/2020): Last Assessment & Plan: Low back pain/stiffnes with forward flexion. No radicular symptoms. Discussed likely mechanical origin of these complaints. Will obtain updated films. Begin trial of tizanidine 2 mg every 6hr prn. For persistent symptoms will consider PT. Renal mass 06/09/2018 Overview (08/14/2020): Added automatically from request for surgery [id number] Added automatically from request for surgery [id number] Hypogonadism in male 05/17/2018 Hypertension, unspecified type 04/06/2018 Biceps tendinitis, right 04/06/2018 Overview (08/14/2020): Last Assessment & Plan: This was his biggest complaint at last visit, resolved without intervention. Monitor for recurrence. Rheumatoid arthritis of [facility] with negative rheumatoid factor ([facility]) 01/27/2017 Overview (08/14/2020): Overview: Initial L knee with pain and [...] mg qid prn Last Assessment & Plan: Reports one week of L 2nd MCP [...] in 3 months or sooner as needed. Leukocytosis 01/27/2017 Overview (08/14/2020): Last Assessment & Plan: Wbc 20.42 although pt reported severe chills/?fever night before labs. Likely with transient viral infection. Repeat wbc 12. Per pt he was referred to hem/onc per Dr. Guzman. Rotator cuff tendonitis 01/27/2017 Overview (08/14/2020): MRI left shoulder reveals severe rotator cuff tendinopathy with partial thickness tears of supraspinatus, infraspinatus, and subscapularis tendons with moderate AC Oa, moderate subacromial/subdeltoid bursitis, and small glenohumeral joint effusion. L shoulder injected with kenalog (01/27/17) Referred to PT (01/27/17) Last Assessment & Plan: MRI reveals severe rotator cuff tendinopathy with [...] up with his ortho, Dr. Ez Umaña. Arthritis of right acromioclavicular joint 09/24 Bursitis of right shoulder 09/25/2015 Knee pain 07/26/2015 Osteoarthritis of left knee 07/26/2015 Osteoporosis 07/26/2015 Gastroesophageal reflux disease 07/23/2015 Resolved Problems Problem Noted Date Diagnosed Date Resolved Date Obstructive sleep apnea 09/07/201804/17 Renal mass, left 05/17/2018 05/24/2019 Biceps tendinitis, right 04/06/201802/2024 Overview (04/06/2018): Overview: MRI left shoulder reveals severe rotator cuff tendinopathy with partial thickness tears of supraspinatus, infraspinatus, and subscapularis tendons with moderate AC Oa, moderate subacromial/subdeltoid bursitis, and small glenohumeral joint effusion. L shoulder injected with kenalog (01/27/17) Referred to PT (01/27/17) Last Assessment & Plan: MRI reveals severe rotator cuff tendinopathy with [...] up with his ortho, Dr. Ez Umaña. Last Assessment & Plan: This is his biggest complaint and is based on history and exam findings. I did discuss with him referral to physical therapy verses a corticosteroid injection although he wants to defer at this time. If symptoms progress he may reconsider. Continue diclofenac 75 mg as needed as this does help. Encounters Date Type Department Care Team Description 10/17/2024 10:00 AM CDT Telemedicine [facility] Family & Internal Medicine [address] [address] Shankar Piedra P, DO Diarrhea (Patient c/o diarrhea and lack of energy x 4 days. Patient started to take generic immodium this morning. Patient states today his feeling slightly better.); Hiccups (Patient c/o ongoing intermittent hiccups.) 10/17/2024 Travel 10/03/2024 1:40 PM CDT Office Visit [facility] Family & Internal Medicine [address] [address] Shankar Piedra, DO Sleep Study (The patient presents to follow up on results. ); Lab Results (The patient states he recently had labs and would like to discuss the results.) 10/03/2024 Results Follow-Up [facility] Internal [address] [address] Shankar Piedra, DO CBC W/DIFF AUTOMATED, FOLIC ACID SERUM, TESTOSTERONE, FREE & TOTAL, VITAMIN B-12 10/03/2024 Travel 09/21/2024 Scan [facility] Scanned, [facility] 09/16/2024 Telephone [facility] Internal [address] [address] Shankar Piedra, Lab Order 09/07/2024 Scan [facility] Scanned, [facility] Sleep Study (SCAN) 09/05/2024 Scan [facility] Scanned, [facility] 09/02/2024 Scan [facility] Scanned, [facility] 09/01/2024 7:00 AM CDT Office Visit [facility] Internal [address] [address] Shankar Piedra, DO Hyperlipidemia (6 month follow up. The patient states he had labs done this week and in June at [facility] ); Hypertension 09/01/2024 Scan [facility] Scanned, [facility] 09/01/2024 Travel 08/30/2024 Scan [facility] Scanned, [facility] Lab (SCAN) 08/26/2024 Patient Outreach [facility] Internal [address] [address] Shankar Piedra, DO Pre-visit Gap Closure from Last 3 Months Immunizations Immunization Administration Dates Next Due Flucelvax 2 YRS+ (Multi-Dose Vial) 02/23/2018 Fluzone Adult - >Age 3 (Prefilled Syringe) 03/08 Fluzone High Dose - >Age 65 (Prefilled Syringe) 02/28/2022,02/25/2021,01/24/2020 Influenza (Generic) 02/23/2018,03/24/2017 Influenza Adult (Generic) 03/02/2023 MODERNA COVID-19 (12+) MRNA, LNP-S, PF, 100 MCG/ 0.5 ML DOSE 07/25/2020,06/27/2020 MODERNA COVID-19 ([employer]SE RADHA), MRNA, LNP-S, PF, 50 MCG/ 0.25 ML DOSE 04/10/2021 Pneumococcal (Pneumovax 23) 12/09/2021 Pneumococcal (Prevnar 13) 12/03/2020 Shingrix 08/06/2022,05/05/2022 Tdap (Generic) 10/10/2014 Family History Medical History Relation Comments Cancer Other Relation Status Comments Other Social History Tobacco Use Types Packs/Day Years Used Date Smoking Tobacco: Former Cigarettes 0.8 4 0 05/18/1974 - 05/18/1978 Passive Smoke Exposure: Never Smokeless Tobacco: Never Tobacco Cessation:Counseling Given: Yes Alcohol Use Standard Drinks/Week Comments Yes 0 (1 standard drink = 0.6 oz pur e alcohol) Social events PHQ-2 Answer Date Recorded Patient Health Questionnaire-2 Score 0 09/01/2024 Sex and Gender Information Value Date Recorded Sex Assigned at Male 09/22/2022 6:58 AM CDT Legal Sex Male 8:19 PM CDT Gender Identity Male 09/22/2022 6:58 AM CDT Sexual Orientation Straight 09/22/2022 6: 58 AM CDT Last Filed Vital Signs Vital Sign Reading Time Taken Comments Blood Pressure 138/78 10/03/2024 2:14 PM CDT Pulse 54 10/03/2024 1:31 PM CDT Temperature 37.2 C (99 F) 10/03/2024 1:31 PM CDT Respiratory Rate 16 10/03/2024 1:31 PM CDT Oxygen Saturation 98% 10/03/2024 1:31 PM CDT Inhaled Oxygen Concentration - - Weight 72.3 kg (159 lb 6.4 oz) 10/03/2024 1:31 P M CDT Height 170.2 cm (5' 7) 10/03/2024 1:31 PM CDT Body Mass Index 24.97 10/03/2024 1:31 PM CDT Plan of Treatment Upcoming Encounters Date Type Department Care Team (Late st Contact Info) Description 01/03/2025 8:40 AM CDT Office Visit [facility] Family & Internal Medicine [facility] [address] [place] [address] Shankar Piedra, [address] [place] [address] 03/03/2025 7:00 AM CDT Office Visit [facility] Family & Internal [facility] [address] [place] [address] Shankar Piedra, [address] [place] [address] Health Maintenance Due Date Last Done Comments Annual Medicare Wellness Visit 2020 DTaP, Tdap and Td Vaccines ( 2 - Td or Tdap) 10/10/2024 10/10/2014 COVID-19 Vaccine (4 - 2023-2 5 season) 2025 04/10/2021, 07/25/2020, 06/27/2020 Postponed from 01/17/2024 (Going to Outside Clinic) Colorectal Cancer Screening Colonoscopy (10 Years) 06/08/2029 06/08/2019 RSV Immunization or 60+ Years (1 - 1-dose 75+ series) 2030 AAA SCREENING Completed 10/13/2018, 10/13/2018, 04/27/2018 Hepatitis C Completed 05/24/2019 Pneumococcal Vaccine: 50+ Years Completed 12/09/2021, 12/03/2020 Zoster Vaccines Completed 08/06/2022, 05/05/2022 PHQ-2 (Physician [place]) Completed 09/01/2024 Meningococcal B Vaccine Aged Out No l onger eligible based on patient's age to complete this topic Meningococcal Vaccine Aged Out No mallory dakota eligible based on patient's age to complete this topic RSV Immunizations Under 20 Months Aged Out No longer eligible b ased on patient's age to complete this topic Procedures Procedure Name Priority Date/Time Associated Diagnosis Comments VITAMIN B-12 Routine 09/21/2024 7:05 AM CDT Elevated MCV FOLIC ACID SERUM Routine 09/21/2024 7:05 AM CDT Elevated MCV TESTOSTERONE, FREE & TOTAL Routine 09/21/2024 7:04 AM CDT Hypogonadism in male Elevated hematocrit CBC W/DIFF AUTOMATED Routine 09/21/2024 7:04 AM CDT Hypogonadism in male Elevated hematocrit SLEEP STUDY GENERIC (SCAN ORDER) 09/07/2024 OUTSIDE LAB (SCAN ORDER) 08/30/2024 OUTSIDE LAB (SCAN ORDER) 08/30/2024 COLONOSCOPY GENERIC (SCAN ORDER) Routine 06/08/2019 9:37 AM [employer] DEPOSITOR HEPATITIS C ANTIBODY 05/24/2019 9:24 AM [employer] DEPOSITOR USV ABD PEL OR RETRO DUPLEX COMP Routine 04/27/2018 9:53 AM [employer] DEPOSITOR Resistant hypertension from Last 3 Months or Most Recently Relevant to Health Maintenance Results * VITAMIN B-12 (09/21/2024 7:05 AM CDT) Pathologist [facility] VITAMIN B12 S/P/B 785 232 - 1,245 pg/mL [facility] 1 09/21/2024 7:05 AM CDT 09/21/2024 Narrative [facility] - 09/22/2024 4:07 AM CDT Performed at: - [facility] [id number] Department Store Salesperson: Clemente Kulkarni PhD, Phone: [phone] us Shankar Piedra DO LABORATORY Final Re sult [facility] [address] [place] [address] [facility] * FOLIC ACID SERUM (09/21/2024 7:05 AM CDT) Pathologist [facility] FOLATE 19.6 >3.0 ng/mL [facility] 1 Comment: A serum folate concentration of less than 3.1 ng/mL is considered to represent clinical deficiency. 09/21/2024 7:05 AM CDT 09/21/2024 Narrative [facility] - 09/22/2024 4:07 AM CDT Performed at: [address] [id number] Department Store Salesperson: Clemente Kulkarni PhD, Phone: [phone] Shankar Piedra DO LABORATORY Final Re sult Performing Organization Address [facility] de Phone Number [facility] [place] [phone] [facility] * (ABNORMAL) TESTOSTERONE, FREE & TOTAL (09/21/2024 7:04 AM CDT) TESTOSTERONE >1500(H) 264 - 916 ng/dL [facility] 1 Comment: Adult male reference interval is based on a population of healthy nonobese males (BMI <30) between 19 and 39 years old. Savanna et.al. JCEM 2017,102;8037-1831. PMID: [id number]. TESTOSTERONE FREE 26.8(H) 6.6 - 18.1 pg/mL [facility] 2 09/21/2024 7:04 AM CDT 09/21/2024 Narrative [facility] - 09/24/2024 12:09 PM CDT Performed at: [address] [place] [id number] Department Store Salesperson: Clemente Kulkarni PhD, Phone: [phone] Performed at: [address] [place] [id number] Department Store Salesperson: Imer Travis MD, Phone: [phone] us Shankar Piedra DO LABORATORY Final Re sult Performing Organization Address [facility] de Phone Number [facility] [phone] [facility] * (ABNORMAL) CBC W/DIFF AUTOMATED (09/21/2024 7:04 AM CDT) WBC 9.1 3.4 - 10.8 x10E3/uL [facility] 1 RBC 5.42 4.14 - 5.80 x10E6/uL [facility] 1 HGB 18.2(H) 13.0 - 17.7 g/dL [facility] 1 HCT 53.8(H) 37.5 - 51.0 % [facility] 1 MCV 99(H) 79 - 97 fL [facility] 1 MCH 33.6(H) 26.6 - 33.0 pg [facility] 1 MCHC 33.8 31.5 - 35.7 g/dL [facility] 1 RDW 13.6 11.6 - 15.4 % [facility] 1 PLATELET COUNT 177 150 - 450 x10E3/uL [facility] 1 NEUTROPHILS % 75 Not Estab. % [facility] 1 LYMPHOCYTES % 13 Not Estab. % [facility] 1 MONOCYTES % 9 Not Estab. % [facility] 1 EOSINOPHILS % 3 Not Estab. % [facility] 1 BASOPHILS % 0 Not Estab. % [facility] 1 ABS. NEUTROPHILS 6.8 1.4 - 7.0 x10E3/uL [facility] 1 ABS. LYMPHOCYTES 1.1 0.7 - 3.1 x10E3/uL [facility] 1 MONOCYTES 0.8 0.1 - 0.9 x10E3/uL [facility] 1 ABS. EOSINOPHILS 0.3 0.0 - 0.4 x10E3/uL [facility] 1 ABS. BASOPHILS 0.0 0.0 - 0.2 x10E3/uL [facility] 1 ABS. IMMATURE GRANULOCYTES 0 Not Estab. % [facility] 1 ABS. IMMATURE GRANULOCYTES 0.0 0.0 - 0.1 x10E3/uL [facility] 1 09/21/2024 7:04 AM CDT 09/21/2024 Narrative [facility] - 09/24/2024 12:09 PM CDT Performed at: 01 - [facility] [address] [id number] Department Store Salesperson: Clemente Kulkarni PhD, Phone: [phone] us Shankar Piedra DO LABORATORY Final Re sult [facility] [address] [place] [address] [facility] * SLEEP STUDY GENERIC (SCAN ORDER) (09/07/2024) 09/07/2024 us [facility] Scanned SCANNING Final Resu lt * OUTSIDE LAB (SCAN ORDER) (08/30/2024) Only the most recent of2 resultswithin the time period is included. 08/30/2024 us [facility] Scanned SCANNING Final Resu lt * COLONOSCOPY (06/08/2019 9:37 AM [employer] DEPOSITOR) us Documents Scanned SCANNING Edited Result - Final * HEPATITIS C ANTIBODY (05/24/2019 9:24 AM [employer] DEPOSITOR) HEPATITIS C AB 0.1 0.0 - 0.9 s/co ratio [facility] 1 Comment: Negative: < 0.8 Indeterminate: 0.8 - 0.9 Positive: > 0.9 The CDC recommends that a positive HCV antibody result be followed up with a HCV Nucleic Acid Amplification test ([id number]). 05/24/2019 9:24 AM [employer] DEPOSITOR 05/24/2019 Narrative [facility] - 06/08/2019 4:15 PM M[employer] DEPOSITOR Performed at: 01 - [facility] [id number] Department Store Salesperson: Clemente Kulkarni PhD, Phone: [phone] Specimen Comment: Written Authorization Specimen Comment: Written Authorization Specimen Comment: Written Authorization Received. Specimen Comment: Authorization received from DEEPTI CHEN RN 05-31-2019 Specimen Comment: Logged by Belinda Munguia us Shankar Piedra DO LABORATORY Edited R esult - Final [facility] [address] [place] [address] [facility] * USV ABD PEL OR RETRO DUPLEX COMP (04/27/2018 9:53 AM [employer] DEPOSITOR) Anatomical Region Laterality Modality NA Vascular Ultraso und 04/27/2018 9:13 AM [employer] DEPOSITOR Narrative 04/29/2018 5:58 AM [employer] DEPOSITOR RENAL-MESENTERIC DUPLEX IMAGING VASCULAR LAB Pat.Name: DANIEL IBRAHIM Pat.ID: [id number] .Date: 04/27/2018 Refer.MD: SHANKAR PIEDRA Exam Time: 9:13:00 AM Study Type:CHARLA VS Renal Mesenteric Duplex CYNTHIA Age: 11 1955,63Y Sex: MALE Sonogrphr: Millie Ireland RVT Pat. Stat.:Outpatient History / Clinical:Resistant HTN; hx HTN, ex TOB Procedures:Lee scale, Color Doppler imaging, Doppler Spectral Analysis Race: W ++++++++++++++++++++++++++++++++++++ SUMMARY: ++++++++++++++++++++++++++++++++++++ Maral Renal artery Stenosis Criteria: < 60% = PSV >180 with RAR <3.5; >60% = PSV >180 with RAR >3.5; (RI >.80 = abnormal, kidney dz.) Right renal artery no evident narrowing, normal velocity, with RAR 1.18 . RI .71, with kidney length within normal range. Left renal artery no evident narrowing, normal velocity, with RAR 1.89 . RI .41, with kidney length within normal range. *There is a defined 5.91 x 7.5 cm left kidney isoechoic mass as diagrammed. There is a defined 6.47 x 4.24 cm left kidney cystic mass as diagrammed. Renal veins are patent bilaterally. Aorta no evident narrowing, triphasic. CONCLUSION: Bilateral renal artery stenosis <60% with good kidney preservation bilaterally. Renal cysts noted consider further evaluation if clinically indicated. ++++++++++++++++++++++++++++++++++++ MEASUREMENTS: ++++++++++++++++++++++++++++++++++++ DOPPLER Supra AO Supra AO PSV 83 cm/s RENAL ART Right Origin Origin PSV 49 cm/s Prox Prox PSV 56 cm/s Right Mid Mid PSV 98.2 cm/s Distal Distal PSV 82 cm/s Right RAR RAR PSV 1.18 Left Origin Origin PSV 115.4 cm/s Left Prox Prox PSV 157.1 cm/s Left Mid Mid PSV 125.4 cm/s Left Distal Distal PSV 92.3 cm/s Left RAR RAR PSV 1.89 PARENCHYMA Left Lower Pole Segmental Artery Lower Pole Segm 0.41 Right Lower Pole Segmental Artery Lower Pole Segm 0.71 Right Upper Pole Segmental Artery Upper Pole Segm 0.68 AO-ILIAC Left Kidney Kidney Size 10.9 cm Right Kidney Kidney Size 11.63 cm Signed 04/29/2018 05:58 AM Ta Cleveland M.D. Procedure Note Ta Cleveland MD - 04/29/2018 RENAL-MESENTERIC DUPLEX IMAGING VASCULAR LAB Pat.Name: RADHA DANIEL CHANEY Pat.ID: [id number] .Date: 04/27/2018 Refer.MD: SHANKAR PIEDRA Exam Time: 9:13:00 AM Study Type:CHARLA VS Renal Mesenteric Duplex CYNTHIA Age: 11 1955,63Y Sex: MALE Sonogrphr: Millie Ireland RVT Pat. Stat.:Outpatient History / Clinical:Resistant HTN; hx HTN, ex TOB Procedures:Lee scale, Color Doppler imaging, Doppler Spectral Analysis Race: W ++++++++++++++++++++++++++++++++++++ SUMMARY: ++++++++++++++++++++++++++++++++++++ Maral Renal artery Stenosis Criteria: < 60% = PSV >180 with RAR <3.5; >60% = PSV >180 with RAR >3.5; (RI >.80 = abnormal, kidney dz.) Right renal artery no evident narrowing, normal velocity, with RAR 1.18 . RI .71, with kidney length within normal range. Left renal artery no evident narrowing, normal velocity, with RAR 1.89 . RI .41, with kidney length within normal range. *There is a defined 5.91 x 7.5 cm left kidney isoechoic mass as diagrammed. There is a defined 6.47 x 4.24 cm left kidney cystic mass as diagrammed. Renal veins are patent bilaterally. Aorta no evident narrowing, triphasic. CONCLUSION: Bilateral renal artery stenosis <60% with good kidney preservation bilaterally. Renal cysts noted consider further evaluation if clinically indicated. ++++++++++++++++++++++++++++++++++++ MEASUREMENTS: ++++++++++++++++++++++++++++++++++++ DOPPLER Supra AO Supra AO PSV 83 cm/s RENAL ART Right Origin Origin PSV 49 cm/s Prox Prox PSV 56 cm/s Right Mid Mid PSV 98.2 cm/s Distal Distal PSV 82 cm/s Right RAR RAR PSV 1.18 Left Origin Origin PSV 115.4 cm/s Left Prox Prox PSV 157.1 cm/s Left Mid Mid PSV 125.4 cm/s Left Distal Distal PSV 92.3 cm/s Left RAR RAR PSV 1.89 PARENCHYMA Left Lower Pole Segmental Artery Lower Pole Segm 0.41 Right Lower Pole Segmental Artery Lower Pole Segm 0.71 Right Upper Pole Segmental Artery Upper Pole Segm 0.68 AO-ILIAC Left Kidney Kidney Size 10.9 cm Right Kidney Kidney Size 11.63 cm Signed 04/29/2018 05:58 AM Ta Cleveland M.D. Shanakr Piedra DO VAS Final Re sult from Last 3 Months or Most Recently Relevant to Health Maintenance Insurance [facility] Care Teams Ticket Taker [place] Relationship Specialty Start Date End Date Shankar Piedra DO [address] [place] [id number] PCP - General FAMILY PRACTICE 04/06/18
--- OUTSIDE RECORDS SUMMARY | 2024-10-31 08:19 | XMS_ITS | Referral Summary ---
Author Organization [place] [id number] Address [address] [place] [phone] Phone Care Team Providers Care Veterans' Counselor Name Role Phone Bryce Sheth DO Primary Care Provide r Frankie Murphy MD Unavailable [phone] Encounters Date Type Department Care Team Description 10/19/2024 Orders Only [facility] Advanced Medicine ([facility]) - [facility] Urology [address] [facility] Advanced Medicine 11th [place] [address] [place] [id number] Ezra Sims NP Renal mass (Primary Dx) 10/19/2024 Telephone [facility] Surgery [address] [place], [place] [id number] China Curran 08/31/2024 Results Follow-Up [facility] [address] [place] [phone] Fior Elizondo PA CBC with auto differential, Comprehensive metabolic panel 08/29/2024 9:00 AM CDT Office Visit [facility] [address] [place] [phone] Fior Elizondo PA Rheumatoid arthritis of multiple sites with negative rheumatoid factor (HCC) (Primary Dx); Encounter for medication monitoring; Acute pain of left knee from Last 3 Months Allergies No known active allergies Medications BYSTOLIC [...] 05/03/2024 Assessment & Plan (05/03/2024 9:28 AM SUPPLY CHAIN BUYER): Reports notable improvement with home PT exercises, [...] monitoring Assessment & Plan (05/03/2024 8:17 AM SUPPLY CHAIN BUYER): Continue routine lab monitoring Assessment & Plan (01/05/2024 8:19 AM CDT): Continue routine lab monitoring Assessment & Plan (09/09/2023 9:06 AM CDT): Continue routine lab monitoring Assessment & Plan (04/06/2023 11:35 AM SUPPLY CHAIN BUYER): Continue routine lab monitoring Assessment & Plan (11/24/2022 11:43 AM CDT): Continue routine lab monitoring Assessment & Plan (09/22/2022 10:05 AM CDT): Continue routine lab monitoring Assessment & Plan (07/21/2022 10:44 AM SUPPLY CHAIN BUYER): Continue routine lab monitoring Assessment & Plan (03/17/2022 1:46 PM CDT): Continue routine lab monitoring Assessment & Plan (12/16/2021 2:04 PM CDT): Continue routine lab monitoring Assessment & Plan (09/16/2021 2:36 PM CDT): Continue routine lab monitoring Assessment & Plan (06/17/2021 12:40 PM SUPPLY CHAIN BUYER): Continue routine lab monitoring Assessment & Plan (03/18/2021 2:04 PM CDT): Continue routine lab monitoring Assessment & Plan (12/03/2020 3:52 PM CDT): Continue routine lab monitoring Assessment & Plan (09/17/2020 3:06 PM CDT): Continue routine lab monitoring Assessment & Plan (06/18/2020 2:00 PM SUPPLY CHAIN BUYER): Continue routine lab monitoring Assessment & Plan (04/03/2020 8:27 AM SUPPLY CHAIN BUYER): Continue routine lab monitoring Assessment & Plan (01/09/2020 9:51 AM CDT): Continue routine lab monitoring Assessment & Plan (10/24/2019 12:51 PM CDT): Continue routine lab monitoring Assessment & Plan (07/20/2019 3:56 PM SUPPLY CHAIN BUYER): Continue routine lab monitoring Low back pain without sciatica 01/04/2019 Assessment & Plan (06/19/2020 11:45 AM SUPPLY CHAIN BUYER): Low back pain/stiffnes with forward flexion. No [...] (06/09/2018): Added automatically from request for surgery [id number] Biceps tendinitis, right 04/06/2018 Assessment & Plan (07/06/2018 12:04 PM SUPPLY CHAIN BUYER): This was his biggest complaint at last visit, resolved without intervention. Monitor for recurrence. Assessment & Plan (04/06/2018 10:42 AM SUPPLY CHAIN BUYER): This is his biggest complaint and is based on history and exam findings. I did discuss with him referral to physical therapy verses a corticosteroid injection although he wants to defer at this time. If symptoms progress he may reconsider. Continue diclofenac 75 mg as needed as this does help. Rheumatoid arthritis of joint venture [facility] with negative rheumatoid factor 01/27/2017 Overview [...] needed. Assessment & Plan (05/03/2024 8:16 AM SUPPLY CHAIN BUYER): cdai is in remission. Will continue methotrexate [...] needed. Assessment & Plan (04/06/2023 11:35 AM SUPPLY CHAIN BUYER): cdai is in remission. 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 Otherwise will continue methotrexate 20 mg weekly and folic acid 1 mg daily. He is s/p nephrectomy, will continue monitoring his renal function closely to ensure that methotrexate remains appropriate. Labs up to date. Follow-up as scheduled in November or sooner as needed should symptoms persist. Assessment & Plan (07/21/2022 10:44 AM SUPPLY CHAIN BUYER): cdai in remission. Overall feels well controlled [...] needed. Assessment & Plan (06/18/2021 9:15 AM SUPPLY CHAIN BUYER): cdai = 4. Overall feels well controlled [...] needed. Assessment & Plan (06/19/2020 11:46 AM SUPPLY CHAIN BUYER): Reports one week of L 2nd MCP [...] needed. 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 At baseline feels well controlled with [...] needed. Assessment & Plan (04/26/2019 10:50 AM SUPPLY CHAIN BUYER): He feels he is doing well overall [...] needed. Assessment & Plan (07/06/2018 12:08 PM SUPPLY CHAIN BUYER): He feels he is doing well overall [...] methotrexate. Assessment & Plan (04/06/2018 10:39 AM SUPPLY CHAIN BUYER): He feels he is doing well overall [...] months. Assessment & Plan (07/14/2017 10:36 AM SUPPLY CHAIN BUYER): Doing very well with essentially no complaints other than occasional stiffness in wrists. Has no synvoitis on exam and no tenderness. Cont MTX 20 mg PO weekly, folic acid 1 mg daily. Pt taking diclofenac 75 mg 3 times weekly although he is going to see how he does off it. Labs as below. F/u 3 months. Assessment & Plan (04/14/2017 9:24 AM SUPPLY CHAIN BUYER): Continues to improve with the MTX. Still [...] can offer more benefit. F/u 2 weeks Social History Tobacco Use Types Packs/Day Years Used Date Smoking Tobacco: Former Cigarettes 1 3 1 - 1975 Smokeless Tobacco: Never Alcohol Use [...] 36.6 C (97.9 F) 06/18/2021 8:44 AM SUPPLY CHAIN BUYER Respiratory Rate 16 07/20/2018 11:15 AM SUPPLY CHAIN BUYER Oxygen Saturation 95% 08/29/2024 8:59 AM CDT Inhaled Oxygen Concentration - - Weight 71.9 kg (158 lb 9.6 oz) 08/29/2024 8:59 A M CDT Height 170.2 cm (5' 7) 08/29/2024 8:59 AM CDT Body Mass Index 24.84 08/29/2024 8:59 AM CDT Plan of Treatment Not on file Procedures Procedure Name Priority Date/Time Associated Diagnosis [...] with auto differential (08/30/2024 7:06 AM CDT) Pathologist [facility] WBC 8.0 3.4 - 10.8 x10E3/uL [facility] [...] - 08/30/2024 11:07 PM CDT Performed at: [address] [id number] Front Office Medical Assistant: Clemente Kulkarni PhD, Phone: [phone] us Fior MARKS LAB BLOOD ORDERABLES [place] l Result [facility] - 01 * (ABNORMAL) Comprehensive metabolic panel (08/30/2024 7:06 AM CDT) [facility] Glucose 105(H) 70 - 99 mg/dL [facility] [...] - 08/31/2024 4:07 AM CDT Performed at: [facility] [address] [place] [id number] Front Office Medical Assistant: Clemente Kulkarni PhD, Phone: [phone] us Fior Zamzam MARKS LAB BLOOD ORDERABLES [place] asif Result [facility] - 01 * CT abdomen with and without contrast (10/13/2018 11:51 AM CDT) Anatomical Region Laterality Modality Body N/A Computed Tomogra phy 10/13/2018 12:1 1 PM CDT Impressions 10/13/2018 12:11 PM CDT 1. Interval left nephrectomy and adrenalectomy without evidence of recurrent or metastatic disease. 2. Large hiatal hernia Electronically signed by: Walker Razo M.D. Narrative 10/13/2018 12:11 PM CDT EXAMINATION: Computed tomography [...] examination of the abdomen and pelvis from [facility] 05/13/2018 FINDINGS: There has been interval left [...] examination of the abdomen and pelvis from [facility] 05/13/2018 FINDINGS: There has been interval left [...] HCV RNA qn Undetected Undetected IUnits/mL [facility] Comment: Result in log IU/mL is Undetected. ADDITIONAL INFORMATION The quantification range of this assay is 15 to 100,000,000 IU/mL (1.18 log to 8.00 log IU/mL). Testing was performed by the MARG[employer]ITA AmpliPrep/MARGARITA TaqMan HCV Test, version 2.0 ([employer] Test Performed by: [place] [address] Blood specimen (specimen) 01/13/2017 10:30 AM CDT 01/13/2017 3:27 PM CDT Frankie Murphy MD LAB MICROBIOLOGY - GENER AL ORDERABLES Final Result [facility] [address] Department [place] [address] from Last 3 Months or Most Recently Relevant to Health Maintenance Insurance [facility] [employer] [place] [address] [facility] [address] [place] [address] [facility] [place] [address] [facility] MEDICARE ADVANTAGE Advance Directives For more information, please contact: [phone] * Full Code (Latest Code Status on File) Date Activated Date Inactivated Comments 07/19/2018 11:09 AM 07/20/2018 9:35 PM Care Teams Veterans' Counselor Relationship Specialty Start Date End Date Bryce Sheth DO PCP - General 10/13/18 Frankie Murphy MD [address] [place] [address] Consulting Physician Rheumatology 12/23/18
--- OUTSIDE RECORDS SUMMARY | 2024-10-31 08:19 | XMS_ITS | Clinical Summary ---
Author Organization [facility] Address [address] [place] [phone] Phone Care Team Providers Care Hospital Medicine Director Name Role Phone Marcianomiles Bryce Esquivel DO [...] tablet 1 Active B-D 3CC LUER-ARLENE SYR 40DC5-9/2 22G X 1-1/2 3 ML misc See administration instructions 1 Active nebivolol (BYSTOLIC) 10 MG tablet 2 Active Active Problems Problem Noted Date Diagnosed Date Stage 3a chronic kidney disease 01/16/2020 Hyperlipidemia 05/24/2019 Obstructive sleep apnea 09/07/2018 Renal mass 06/09/2018 Overview (07/13/2020): Added automatically from request for surgery [id number] Essential (primary) hypertension 10/06/2017 Rheumatoid arthritis of [...] Comments Blood Pressure 118/78 07/17/2021 8:49 AM [employer]ATIONS Pulse 72 07/17/2021 8:49 AM [employer] Temperature 35.3 C (95.5 F) 07/17/2021 8:49 AM [employer] Respiratory Rate - - Oxygen Saturation - - Inhaled Oxygen Concentration - - Weight 76.7 kg (169 lb) 07/17/2021 8:49 AM [employer] Height 170.2 cm (5' 7) 07/17/2021 8:49 AM [employer] Body Mass Index 26.47 07/17/2021 8:49 AM [employer] Plan of Treatment Health Maintenance Due Date Last Done Comments Pneumococcal PPSV23/PCV13 65 + Years / Low and Medium Risk (2 of 3 - PPSV23) 12/03/2021 12/03/2020 COVID-19 Vaccine (3 - 2023-2 5 season) 2024 07/25/2020, 06/27/2020 Influenza Vaccine (Season Ended) 2025 03/08/2019, 02/23/2018, 02/23/2018, Additional history exists Insurance Care Teams Hospital Medicine Director Relationship Specialty Start Date End Date Bryce Sheth DO [address] [place] [id number] PCP - General Family Medicine 05/25/19
--- OUTSIDE RECORDS SUMMARY | 2024-10-31 08:19 | XMS_ITS | Encounter Summary ---
Author Organization [facility] Address [address] [place] [address] Phone Care Team Providers Care Content Strategy Lead Name Role Phone Bryce Sheth DO Primary Care Provide r Frankie Murphy MD Unavailable Encounter Details Date Type Department Care Team (Latest Contact Info) Description 08/31/2024 Results Follow-Up [facility] [address] [place] [phone] Fior Elizondo PA [address] [place] [address] CBC with auto differential, Comprehensive metabolic panel Social History Tobacco Use Types Packs/Day Years [...] on file Sexual Orientation Not on file documented as of this encounter Plan of Treatment Not on file documented as of this encounter Visit Diagnoses Not on filedocumented in this encounter Care Teams Content Strategy Lead Relationship Specialty Start Date End Date Bryce Sheth DO PCP - General 10/13/18 Frankie Murphy MD [address] [place] [address] Consulting Physician Rheumatology 12/23/18 documented as of this encounter
--- OUTSIDE RECORDS SUMMARY | 2024-10-31 08:19 | XMS_ITS | Encounter Summary ---
Author Organization [facility] Address [address] [place] [phone] Care Team Providers Care Pharmacist'S Aide Name Role Phone Bryce Sheth DO Primary Care Provider + Encounter Details Date Type Department Care Team (Late st Contact Info) Description 10/03/2024 Results Follow-Up [facility] Family & Internal [address] [phone] Bryce Sheth DO [address] [place] [phone] CBC W/DIFF AUTOMATED, FOLIC ACID SERUM, TESTOSTERONE, FREE & TOTAL, VITAMIN B-12 Social History Tobacco Use Types Packs/Day Years Used Date Smoking Tobacco: Former Cigarettes 0.8 4 0 05/18/1974 - 05/18/1978 Passive Smoke Exposure: Never Smokeless Tobacco: Never Alcohol Use Standard Drinks/Week [...] Orientation Straight 09/22/2022 6: 58 AM CDT documented as of this encounter Plan of Treatment Upcoming Encounters Date Type Department Care Team (Late st Contact Info) Description 01/03/2025 8:40 AM CDT Office Visit [facility] Family & Internal Medicine [address] [phone] Bryce Sheth DO [address] [place] [address] 03/03/2025 7:00 AM CDT Office Visit [facility] Family & Internal Medicine - [address] [phone] Bryce Sheth DO [address] [place] [address] documented as of this encounter Visit Diagnoses Not on filedocumented in this encounter Additional Health Concerns Assessment Noted Time PHQ-9 Depression Total Score: 0 08/15/19 22 8:02 AM CDT documented as of this encounter Care Teams Pharmacist'S Aide Relationship Specialty Start Date End Date Bryce Sheth DO [address] [place] [id number] PCP - General FAMILY PRACTICE 04/06/18 documented as of this encounter
--- NOTE | 2024-11-23 22:25 | WPDSLEEPSTUD ---
Sleep Study Date of Study: 10/31/24 Ordering Provider: Rk Sheth DO Interpreting Physician: Vita Garibay MD Sleep Study Type: Split Polysomnogram Height: 1.7 m Weight: 70.307 kg Body Mass Index: 24.3 Neck Circumference (inches): 17 [place]: 3 Reason for Sleep Study Elevated hematocrit, concern for nocturnal hypoxemia Sleep History Daniel Ibrahim is a 69-year-old man with hypertension, rheumatoid arthritis, history of his left kidney removed due to renal cell cancer. He had an elevated hematocrit. A home sleep test showed mild obstructive sleep apnea but 20% of the events were central. He does have a history of mild obstructive sleep apnea in the past but did not like using an oral device. His testosterone level was high, greater than 1500 ng/dL on 10/03/2024. He has a history of chronic kidney disease stage 3. He never awakens from sleep feeling short of breath. He never wakes at night with heartburn, belching or coughing.??He rarely snores, never snores loudly enough that others complain. He never has trouble sleeping when he has a cold. He never wakes up gasping for breath during the night. He never has breathing problems at night. He never sweats excessively at night. He never notices his heart pounding or beating irregularly during the night. He occasionally falls asleep during the day. He never falls asleep involuntarily, never falls asleep while driving. He never experiences loss of muscle tone with strong emotion. He never has daytime difficulty at work due to excessive sleepiness. He never feels paralyzed on waking or falling asleep. He never experiences vivid dreams upon waking or falling asleep. He never feels afraid of going to sleep. He never has nightmares. He frequently recalls his dreams. He never has thoughts racing through his mind. He never feels sad or depressed. He never feels anxiety. He never notices parts of his body jerk. He never kicks during the night. He never feels crawling or aching feelings in his legs. He never feels leg pain at night. He never has morning jaw pain, never grinds his teeth at night. He never feels bothered by pain during the day, never awakened by pain during the night. He never wakes up feeling stiff in the morning, and he occasionally wakes feeling sore or achy. He occasionally awakens with pain in his neck, spine, or joints. Normal bedtime is 10:30 p.m., falling asleep within 15 minutes, waking at most once at night for a trip to the bathroom, returns to sleep easily.. Wake time is between 5 and 6:00 a.m.. On weekends, bedtime is 11:30 p.m., wake time is between 7 and 8:00 a.m.. He typically gets between 6 and 8 hours of sleep per night.. He does not generally take naps during the day however a short nap lasting 10-15 minutes may be refreshing. Habits:??Tobacco: Remote smoking Caffeine: 2 cups daily Alcohol: Socially Recreational substances: none PMFSH Past Medical History Medical History Chronic kidney disease, stage 3a Gallbladder polyp Cancer of kidney IBS (irritable bowel syndrome) Hypogonadism in male GERD without esophagitis Essential (primary) hypertension Surgical History Surgical History S/P cholecystectomy lap andreas 07/23/22 H/O left nephrectomy Family History Family History Mother Patient's mother is , Onset Age: 58 Family history of lung cancer, Onset Age: 59 Father Family history of primary malignant neoplasm of liver, Onset Age: 56 Social History Social History Smoking packs per day: 1 Smoking cigarettes per day: 20.0 Years smoked: 3 Smoking pack-years: 3.00 Smoking status: Former smoker Tobacco type: cigarettes Smoking end date: 05/18/75 Alcohol intake: current Alcohol use details: 2/MONTH Substance use: never Substance use type: does not use Do You Feel Safe in your Home?: Yes Lack of Transportation: No Lack of Food: Never True Current Housing: I Have Housing Concerned About Future Housing: No Difficulty Paying Gas/Electric Bills: No Difficulty Paying for Meds: No Currently Unemployed: No Education: High School Diploma/GED Difficulty w/ Childcare or Family Care: No Living arrangements: with family Spiritual care concerns: No Medications Home Medications ?Medication ?Instructions ?Recorded ?Confirmed ?Type atorvastatin 20 mg tablet 20 mg PO HS 02/17/22 08/02/24 History folic acid 1 mg tablet 1 mg PO DAILY 02/17/22 08/02/24 History lisinopril 40 mg tablet 40 mg PO DAILY 02/17/22 08/02/24 History methotrexate sodium 2.5 mg tablet 20 mg PO WEEKLY 02/17/22 08/02/24 History nebivolol 10 mg tablet (Bystolic) 10 mg PO DAILY 02/17/22 08/02/24 History testosterone cypionate 200 mg/mL 200 mg IM MONTHLY 02/17/22 08/02/24 History intramuscular oil tadalafil 20 mg tablet 20 mg PO DAILY PRN Erectile 07/18/22 08/02/24 History Dysfunction pantoprazole 40 mg tablet,delayed See Rx Instructions .Route 01/13/24 08/02/24 Rx release .COMPLEX #180 tabs Sleep Procedure A split night polysomnogram using the [email or web address] multi-channel system recorded the standard physiologic parameters including EEG, EOG, submentalis EMG, anterior tibialis EMG, EKG, body position, nasal and oral airflow using nasal pressure sensor and thermistor. Respiratory parameters of chest and abdominal movements were recorded with Respiratory Inductance Plethysmography belts. Oxygen saturation was recorded by pulse oximetry. Video monitoring was also performed. Sleep stages, periodic limb movements, and EEG arousals were scored in 30 second epochs according to the criteria of the AASM Scoring Manual. The Apnea-Hypopnea Index was calculated using CMS guidelines for definition of hypopnea while scoring respiratory events. After the baseline portion the patient met criteria for a titration with an AHI of 8.0 and desaturation to 87%. He has a medical co-morbidity of hypertension which allowed him to proceed with PAP therapy and mild JAYA. The patient use a small ResMed AirTouch F20 fullface mask and heated humidity with initial pressure of CPAP 5 cm titrated to CPAP 7 cm. At CPAP 7 cm, the patient spent 112.5 minutes in bed, 14.5 minutes awake, 68 minutes in non-REM with 30 minutes in REM. Sleep efficiency was 87.1%. The residual apnea-hypopnea index was 3.7. The lowest saturation was 90%. The patient had REM in the left lateral position. This is the optimal pressure. There were excessive number of leg movements during the night, improved on the titration portion. Sleep Architecture During the diagnostic portion of the study, the total recording time was 152.8 minutes. The total sleep time was 89.5 minutes. Sleep latency was 39.8 minutes. There was no REM on the baseline. Sleep Efficiency was 58.6%. The patient had 11 awakenings for an awakening index of 7.4. Wake after sleep onset time was 23.5 minutes. The patient spent 3.5 minutes, 3.9% of total sleep time in Stage N1. The patient spent 84.0 minutes, 93.9% in Stage N2. The patient spent 2.0 minutes, 2.2% in Stage N3. The patient spent no time in Stage REM sleep. At 12:11:54 AM the patient was placed on PAP treatment using a small ResMed AirTouch F20 fullface mask with heated humidity, was titrated at pressures ranging from CPAP 5 to 7 cm. During the treatment portion of the study, the total recording time was 333.8 minutes. The total sleep time was 273.5 minutes. Sleep latency was 7.0 minutes. REM latency was 87.0 minutes. Sleep Efficiency was 81.9%. Wake after Sleep Onset time was 53.0 minutes. The patient spent 19.0 minutes, 6.9% of total sleep time in Stage N1. The patient spent 179.0 minutes, 65.4% in Stage N2. The patient spent 34.0 minutes, 12.4% in Stage N3. The patient spent 41.5 minutes, 15.2% in Stage REM. Respiratory Analysis During the diagnostic portion of the study, the patient had 3 hypopneas, 8 obstructive apneas, no mixed apneas, and 1 central apnea for an overall Apnea Hypopnea Index of 8.0 events per hour. The REM Apnea Hypopnea Index was 0. The NREM Apnea Hypopnea Index was 8.0. The patient had a Central Apnea Hypopnea Index of 0.7. There were no Respiratory Effort Related Arousals. The Respiratory Disturbance Index is 10.1 events per hour. There was no evidence of [place]gh[place]umont Respirations. During the treatment portion of the study, the patient had 1 hypopneas, 8 obstructive apneas, no mixed apneas, and 9 central apneas for an overall Apnea Hypopnea Index of 3.9 events per hour. The REM Apnea Hypopnea Index was 2.9. The NREM Apnea Hypopnea Index was 4.1. The patient had a Central Apnea Hypopnea Index of 2.0. There were no Respiratory Effort Related Arousals. The Respiratory Disturbance Index is 4.4 events per hour. There was no evidence of [place] Respirations. Arousals During the diagnostic portion of the study, there were a total of 57 arousals for an arousal index of 38.2. There were 4 respiratory arousals for an index of 2.7. There were 31 periodic limb movement arousals for an index of 20.8. There were 1 isolated limb movement arousals for an index of 0.7. There were 21 spontaneous arousals for an index of 14.1. During the treatment portion of the study, there were a total of 98 arousals for an index of 21.5. There were 4 respiratory arousals for an index of 0.9. There were 30 periodic limb movement arousals for an index of 6.6. There were 8 isolated limb movement arousals for an index of 1.8. There were 57 spontaneous arousals for an index of 12.5. Periodic Limb Movements During the diagnostic portion of the study, the patient had 1 isolated limb movement with an index of 0.7. The patient had 222 periodic limb movements with an index of 148.8. The patient had a total of 223 limb movements with a total limb movement index of 149.5. During the treatment portion of the study, the patient had 32 isolated limb movements with an index of 7.0. The patient had 323 periodic limb movements with an index of 70.9. The patient had a total of 355 limb movements with a total limb movement index of 77.9. Oximetry Data During the diagnostic portion of the study, the patient had an average oxygen saturation of 91.4% in wake with a minimum oxygen saturation of 87% and a maximum oxygen saturation of 96%-. The patient had an average oxygen saturation of 91.3% in sleep with a minimum oxygen saturation of 87% and a maximum oxygen saturation of 94%. The patient had 8 oxygen desaturations resulting in an Oxygen Desaturation Index of 5.4. The patient spent 2.1 minutes, 1.4% of total sleep time with an oxygen saturation less than 88%. During the treatment portion of the study, the patient had an average oxygen saturation of 92.4% in wake with a minimum oxygen saturation of 88% and a maximum oxygen saturation of 96%. The patient had an average oxygen saturation of 92.1% in sleep with a minimum oxygen saturation of 88% and a maximum oxygen saturation of 96%. The patient had 6 oxygen desaturations resulting in an Oxygen Desaturation Index of 1.3. The patient spent 0.1 minutes, 0% of total sleep time with an oxygen saturation less than 88%. Snoring Profile Snoring was mild on the baseline, eliminated at the optimal pressure. Cardiac Profile During the diagnostic portion of the study, the EKG showed normal sinus rhythm. The average pulse rate was 52.7 bpm. The minimum pulse rate was 43 bpm. The maximum pulse rate was 74 bpm. Occasional PVC. During the treatment portion of the study, the EKG showed normal sinus rhythm. The average pulse rate was 44.7 bpm. The minimum pulse rate was 40 bpm. The maximum pulse rate was 80 bpm. Rare PVC. EEG Profile Unremarkable, no evidence of seizures. Assessment and Plan Assessment and Plan (1) Obstructive sleep apnea: Code(s): G47.33 - Obstructive sleep apnea (adult) (pediatric) Status: Acute Assessment and Plan: The split night sleep study on 10/31/2024 shows mild obstructive sleep apnea, the apnea-hypopnea index is 8.0 with desaturation 87%, successfully treated using a small ResMed AirTouch F20 fullface mask and heated humidifier with an optimal pressure of CPAP 7 cm. At CPAP 7 cm, the patient spent 112.5 minutes in bed, 14.5 minutes awake, 68 minutes in non-REM with 30 minutes in REM. Sleep efficiency was 87.1%. The residual apnea-hypopnea index was 3.7. The lowest saturation was 90%. The patient had REM in the left lateral position. The patient should be prescribed this ResMed equipment as well as tubing, filters and reservoir. This should be used with all episodes of sleep. Compliance should be reviewed within 31-90 days of starting therapy for response to therapy, with > 4 hours usage on 70% of the nights. The patient should be asked about symptoms such as excessive daytime sleepiness, quality of sleep, decreased nocturia, increased mental functioning such as memory, mood, and concentration. The patient had an extreme number of periodic limb movements during the study, on the baseline the periodic limb movement index was 148.8 and during treatment it was 70.9. The patient has no complaints about irritable feelings in his legs before sleep or kicking during the night. These leg movements may improve with regular use of CPAP. If his sleep is not refreshing and he is compliant with PAP, consider testing ferritin for iron deficiency anemia as a cause for excessive kicking which could disrupt daytime functioning. Data The data obtained during this sleep study is adequate for interpretation. Certification This sleep study has been reviewed by a board certified sleep medicine physician.
[2024-12-07 11:11] VITALS: BMI 24.3
== END 2024-11-01 06:12 | disposition home or self-care (01) ==
PROVIDERS: PCP Student in an Organized Health Care Education/Training Program; Visit Provider Anesthesiology
DX: G47.33 Obstructive sleep apnea (adult) (pediatric) (principal)
CPT/HCPCS: 95811